=== PATIENT | female | born 1945 | race Two or more races ===

== ENCOUNTER 2024-03-24 13:54 | Inpatient (IN) | payer OTHER, MEDICAID ==
[~2024-03-24] VITALS: Ht 157.5 cm; Wt 60.0 kg
[2024-03-24 15:36] LABS: Basophils # (auto) 0 10 ^3/uL (0-0.2); Basophils % (auto) 0.2 % (0.0-2.0); Eosinophils # (auto) 0.1 10 ^3/uL (0-0.8); Eosinophils % (auto) 0.5 % (0.0-7.0); Hematocrit 30.6 % (36.0-46.0); Hemoglobin 10.1 g/dL (12.2-16.2); Lymphocytes # (auto) 1.6 10 ^3/uL (0.4-5.4); Lymphocytes % (auto) 14.3 % (10.0-50.0); Mean Corpuscular Hemoglobin 28.3 pg (28.0-32.0); Mean Corpuscular Volume 85.6 fL (80.0-100.0); Monocytes % (auto) 9.1 % (0.0-12.0); Neutrophils # (auto) 8.7 10 ^3/uL (1.6-8.6); Neutrophils % (auto) 75.9 % (37.0-80.0); Platelet Count (auto) 486 10^3/uL (140-450); Red Blood Cells 3.57 10^6/uL (4.0-5.20); Red Cell Distribution Width 14.9 % (11.8-14.3); White Blood Cell 11.4 10^3/uL (4.4-10.8)
[2024-03-24 15:51] LABS: Anion Gap 6 (5-15); Carbon Dioxide 26 mmol/L (20-31); Chloride 99 mmol/L (98-107); Potassium 4.1 mmol/L (3.5-5.1); Sodium 131 mmol/L (136-145)
[2024-03-24 15:52] LABS: Calcium 9.5 mg/dL (8.7-10.4)
[2024-03-24 15:57] LABS: BUN/Creatinine Ratio 14.7 (10.0-20.0); Blood Urea Nitrogen 16 mg/dL (9-23); Glucose 92 mg/dL (74-106)
[2024-03-24 16:05] LABS: Urine Bacteria None Seen /hpf (None Seen)
[2024-03-24 16:34] LABS: Urine Blood Negative /uL (Negative); Urine Clarity Clear (Clear); Urine Color Yellow (Yellow); Urine Protein, UAD Negative (Negative); Urine Specific Gravity 1.016 (1.001-1.035); Urine Urobilinogen 8 mg/dL (Negative); Urine WBC 1 /hpf (0 - 5); Urine pH 6.5 (5.0-9.0)
--- NOTE | 2024-03-24 16:44 | ED.PDOC ---
History of Present Illness HPI Comments 78-year-old female presents with a chief complaint of nausea and poor appetite since cholecystectomy surgery. Patient states that her gallbladder was removed from [facility] on March 11, 2024. Patient mentions that she has not been able to hold down any liquids or solids without the need to vomit them back up. Patient also mentions that she has lost a fair amount of weight because of the lack of eating. Denies any abdominal pain or active pain at this time. Chief Complaint: Nausea/Vomiting Time Seen by MD: 16:48 Reviewed Notes: Medications, Allergies Allergies: Coded Allergies: NO KNOWN ALLERGIES (Unverified , 03/24/24) Information Source: Patient Mode of Arrival: Ambulatory Severity: Moderate Timing: Days Duration: Since onset Prehospital treatment: None Past Medical History PAST MEDICAL HISTORY: Denies Surgical History: Cholecystectomy CLOTH PICKER History: Denies all CLOTH PICKER Hx Family History Family History: Reviewed,noncontributory to illness Social History Smoker: Non-Smoker Alcohol: Denies ETOH Use Drugs: Denies Drug Use Lives In: Home Constitutional: denies: chills, diaphoresis, fatigue, fever, malaise, sweats, weakness, others EENTM: denies: blurred vision, double vision, ear bleeding, ear discharge, ear drainage, ear pain, ear ringing, eye pain, eye redness, hearing loss, mouth pain, mouth swelling, nasal discharge, nose bleeding, nose congestion, nose pain, photophobia, tearing, throat pain, throat swelling, voice changes, others Respiratory: denies: cough, hemoptysis, orthopnea, SOB at rest, shortness of breath, SOB with excertion, stridor, wheezing, others Cardiovascular: denies: chest pain, dizzy spells, diaphoresis, Dyspnea on exertion, edema, irregular heart beat, left arm pain, lightheadedness, palpitations, PND, syncope, others Gastrointestinal: reports: nausea, poor appetite; denies: abdomen distended, abdominal pain, blood streaked bowels, constipated, diarrhea, dysphagia, difficulty swallowing, hematemesis, melena, poor fluid intake, rectal bleeding, rectal pain, vomiting, others Genitourinary: denies: abnormal vagina bleeding, burning, dyspareunia, dysuria, flank pain, frequency, hematuria, incontinence, pain, , vagina discharge, urgency, others Neurological: denies: dizziness, fainting, headache, left sided numbness, left sided weakness, numbness, paresthesia, pre-existing deficit, right sided numbness, right sided weakness, seizure, speech problems, tingling, tremors, weakness, others Musculoskeletal: denies: back pain, gout, joint pain, joint swelling, muscle pain, muscle stiffness, neck pain, others Integumetry: denies: bruises, change in color, change in hair/nails, dryness, laceration, lesions, lumps, rash, wounds, others Allergic/Immunocompromised: denies: Difficulty Healing, Frequent Infections, Hives, Itching, others Hematologic/Lymphatic: denies: anemia, blood clots, easy bleeding, easy bruising, swollen glands, others Endocrine: denies: excessive hunger, excessive sweating, excessive thirst, excessive urination, flushing, intolerance to cold, intolerance to heat, unexplained weight gain, unexplained weight loss, others Psychiatric: denies: anxiety, bipolar disorder, depression, hopeless, panic disorder, schizophrenia, sleepless, suicidal, others All Other Systems: Reviewed and Negative Physical Exam General Appearance: Moderate Distress, Normal HEENT: Normal ENT Inspection, Pharynx Normal, TMs Normal Neck: Full Range of Motion, Non-Tender, Normal, Normal Inspection Respiratory: Chest Non-Tender, Lungs Clear, No Accessory Muscle Use, No Respiratory Distress, Normal Breath Sounds Cardiovascular: No Edema, No JVD, No Murmur, No Gallop, Normal Peripheral Pulses, Regular Rate/Rhythm Breast Exam: Deferred Gastrointestinal: No Organomegaly, No Pulsatile Mass, Normal Bowel Sounds, Soft, Suprapubic Genitalia: Deferred Pelvic: Deferred Rectal: Deferred Extremities: No calf tenderness, Normal capillary refill, Normal inspection, Normal range of motion, Non-tender, No pedal edema Musculoskeletal : Apperance: Normal Neurologic: Alert, sap solutions architect II-XII nml as Tested, No Motor Deficits, Normal Affect, Normal Mood, No Sensory Deficits Cerebellar Function: Normal Reflexes: Normal Skin: Dry, Normal Color, Warm Peripheral Pulses: 3+ Radial (R), 3+ Radial (L) Lymphatic: No Adenopathy Was a procedure done? Was a procedure done?: No Differential Dx Considerations may include: Gastroenteritis Electrolyte imbalance X-Ray, Labs, Meds, VS Vital Signs Date Time Temp Pulse Resp B/P (MAP) Pulse Ox O2 Delivery O2 Flow Rate FiO2 03/24/24 14:20 97.2 82 16 122/50 (74) 98 Lab Test 03/24/24 16:05 03/24/24 15:10 Range/Units Urine Color Yellow Yellow Urine Clarity Clear Clear Urine pH 6.5 5.0-9.0 Urine Specific [place] 1.016 1.001-1.035 Urine Protein Negative Negative Urine Ketones 1+ H Negative Urine Blood Negative Negative /uL Urine Nitrite Negative Negative Urine Bilirubin Negative Negative Urine Urobilinogen 8 H Negative mg/dL Urine Leukocyte Esterase Negative Negative /uL Urine RBC 4 0 - 4 /hpf Urine WBC 1 0 - 5 /hpf Urine Squamous Epithelial Cells Few <5 /hpf Urine Bacteria None seen None Seen /hpf Urine Glucose Normal Normal mg/dL White Blood Count 11.4 H 4.4-10.8 10^3/uL Red Blood Count 3.57 L 4.0-5.20 10^6/uL Hemoglobin 10.1 L 12.2-16.2 g/dL Hematocrit 30.6 L 36.0-46.0 % Mean Corpuscular Volume 85.6 80.0-100.0 fL Mean Corpuscular Hemoglobin 28.3 28.0-32.0 pg Mean Corpuscular Hemoglobin Concent 33.0 32.0-36.0 g/dL Red Cell Distribution Width 14.9 H 11.8-14.3 % Platelet Count 486 H 140-450 10^3/uL Mean Platelet Volume 7.6 6.9-10.8 fL Neutrophils (%) (Auto) 75.9 37.0-80.0 % Lymphocytes (%) (Auto) 14.3 10.0-50.0 % Monocytes (%) (Auto) 9.1 0.0-12.0 % Eosinophils (%) (Auto) 0.5 0.0-7.0 % Basophils (%) (Auto) 0.2 0.0-2.0 % Neutrophils # (Auto) 8.7 H 1.6-8.6 10 ^3/uL Lymphocytes # (Auto) 1.6 0.4-5.4 10 ^3/uL Monocytes # (Auto) 1.0 0-1.3 10 ^3/uL Eosinophils # (Auto) 0.1 0-0.8 10 ^3/uL Basophils # (Auto) 0 0-0.2 10 ^3/uL Nucleated Red Blood Cells 0.0 % Sodium Level 131 L 136-145 mmol/L Potassium Level 4.1 3.5-5.1 mmol/L Chloride Level 99 98-107 mmol/L Carbon Dioxide Level 26 20-31 mmol/L Anion Gap 6 5-15 Blood Urea Nitrogen 16 9-23 mg/dL Creatinine 1.09 H 0.550-1.02 mg/dL Glomerular Filtration Rate Calc 52 >90 mL/min BUN/Creatinine Ratio 14.7 10.0-20.0 Serum Glucose 92 74-106 mg/dL Calcium Level 9.5 8.7-10.4 mg/dL Patient alert. Complaining of abdominal. Vitals stable. Answering questions. Reviewed her previous visit. Had gallbladder surgery in this hospital. WBC elevated. Establish intravenous access. Was given fluids. Was given Zosyn. Was given Flagyl. She has not been eating well ever since she started the symptoms. Explained to the patient. Continue cardiac monitoring. UA shows ketones. Time of 1ST Reevaluation: 17:18 Reevaluation 1ST: Unchanged Patient Education/Counseling: Diagnosis, Treatment, Prognosis Family Education/Counseling: Diagnosis, Treatment, Prognosis Departure 1 Departure Time of Disposition: 17:08 Impression: Primary Impression: Leukocytosis Qualified Codes: D72.829 - Elevated white blood cell count, unspecified Additional Impressions: Gastroenteritis Dehydration Disposition: ADMITTED INPATIENT Admit to: Med Surg Condition: Guarded Critical Care Note Critical Care Time?: Yes (45 min-critical care time only) Stability Stability form required: No Heart Score Heart Score: Heart Score Response (Comments) Value History N/A 0 EKG N/A 0 Age N/A 0 Risk Factors N/A 0 Troponin N/A 0 Total 0 I personally scribed for CHAD OVERTON MD ([email or web address]) on 03/24/24 at 16:44. Electronically submitted by Ramu Mcneal ([email or web address]). I personally scribed for CHAD OVERTON MD ([email or web address]) on 03/24/24 at 16:46. Electronically submitted by Ramu Mcneal ([email or web address]). I personally scribed for CHAD OVERTON MD ([email or web address]) on 03/24/24 at 16:53. Electronically submitted by Ramu Mcneal ([email or web address]). I personally scribed for CHAD OVERTON MD ([email or web address]) on 03/24/24 at 16:53. Electronically submitted by Ramu Mcneal ([email or web address]). CHAD OVERTON MD Mar 24, 2024 16:44
[2024-03-24] MEDS: ONDANSETRON HCL 4 MG/2 ML VIAL IV ONE (20:15)
[2024-03-24] MEDS: MORPHINE SULFATE 4 MG/ML SYR/VIAL IV ONE (20:21)
[2024-03-24] MEDS ORDERED: KETOROLAC TROMETH 30 MG/ML 1ML VIAL IV ONE (20:30)
[2024-03-24] MEDS ORDERED: MORPHINE SULFATE INJ 2 MG/ml SYRG IV PRN (22:15)
[2024-03-24] MEDS ORDERED: ACETAMINOPHEN 325 MG TAB PO PRN (22:15)
[2024-03-24] MEDS ORDERED: NITROGLYCERIN 0.4 MG SL TAB SL PRN (22:15)
[2024-03-25] VITALS (7 sets, daily range): BP systolic 113–119; BP diastolic 51–69; PULSE 72–85; RESP 17–19; TEMP 96.7–98.9; O2SAT 93–98
--- NOTE | 2024-03-25 00:21 | DVHHPRES ---
History of Present Illness Resident Creating Document: YANN COBOS RESIDENT History of Present Illness ROXIE SILVA is a 78 years old female with a PMH of HTN presented to the ED with the chief complaints of poor appetite, nausea and throwing for past 3 days. Patient reported, for past 3 days she is having severe nausea and vomiting, and mild abdominal pain stopped eating. Patient gallbladder was removed 03/11/2024 in this facility. On my assessment patient denies fever, chills, diarrhea, constipation, chest pain, shortness of breath, and other associated symptoms Cardiovascular: HTN Past Surgical History: Cholecystectomy, Hysterectomy Family History: None Past Social History Lives with a son. Denies smoking, alcohol and other drug abuse Review of Systems Constitutional: No: Fever, Chills, Sweats, Weakness, Malaise, Other Eyes: No: Pain, Vision change, Conjunctivae inflammation, Eyelid inflammation, Other, Redness ENT: No: Ear pain, Ear discharge, Nose pain, Nose discharge, Nose congestion, Mouth pain, Mouth swelling, Throat pain, Throat swelling, Other Respiratory: No: Cough, Dry, Shortness of breath, SOB with excertion, Wheezing, Hemoptysis, Pleuritic Pain, Sputum, Wheezing, Other Cardiovascular: No: Chest Pain, Palpitations, Orthopnea, Paroxysmal Noc. Dyspnea, Edema, Lt Headedness, Other Gastrointestinal: Nausea, Vomiting, Abdominal Pain Genitourinary: No Dysuria, No Frequency, No Incontinence, No Hematuria, No Retention, No Other Musculoskeletal: No: other, neck pain, shoulder pain, arm pain, back pain, hand pain, leg pain, foot pain Skin: No: Rash, Lesions, Jaundice, Bruising, Other Neurological: No: Weakness, Numbness, Incoordination, Change in speech, Confusion, Seizures, Other Allergies: Coded Allergies: NO KNOWN ALLERGIES (Unverified , 03/24/24) Medications Current Medications Medications Dose Ordered Sig/Corina Route Start Time Stop Time Status Last Admin Dose Admin Sodium Chloride 10 ml Q8HR IV 03/25/24 06:00 Ondansetron HCl 4 mg Q4HP PRN IV 03/24/24 22:15 Acetaminophen 650 mg Q6HP PRN PO 03/24/24 22:15 Nitroglycerin 0.4 mg Q5MINP PRN SL 03/24/24 22:15 Morphine Sulfate 2 mg Q30M PRN IV 03/24/24 22:15 Exam Vital Signs Vital Signs Date Time Temp Pulse Resp B/P (MAP) Pulse Ox O2 Delivery O2 Flow Rate FiO2 03/24/24 19:50 97.9 78 18 124/51 (75) 98 97.9 03/24/24 14:20 Room Air Exam Pt is lying on bed General Appearance: Alert, Oriented X3, Cooperative, Not in acute distress HEENT: Atraumatic, Mucous membranes moist/pink Respiratory: Clear to auscultation, Normal air movement, No added sounds Cardiovascular: Regular rate, Normal S1, Normal S2, No murmurs Abdominal: Mild abdominal tenderness. Active bowel sounds, Soft, no distention, Extremities: No edema, Normal pulses, No tenderness/swelling Skin: No Significant rash, except past surgical scars Neuro: Normal speech, sensorimotor deficits none Psych/Mental Status: Mental status NL, Mood NL Nurse was there as sharperone during examination Labs/Xrays Labs Test 03/24/24 23:57 03/24/24 16:05 03/24/24 15:10 Range/Units Urine Color Yellow Yellow Urine Clarity Clear Clear Urine pH 6.5 5.0-9.0 Urine Specific [place] 1.016 1.001-1.035 Urine Protein Negative Negative Urine Ketones 1+ H Negative Urine Blood Negative Negative /uL Urine Nitrite Negative Negative Urine Bilirubin Negative Negative Urine Urobilinogen 8 H Negative mg/dL Urine Leukocyte Esterase Negative Negative /uL Urine RBC 4 0 - 4 /hpf Urine WBC 1 0 - 5 /hpf Urine Squamous Epithelial Cells Few <5 /hpf Urine Bacteria None seen None Seen /hpf Urine Glucose Normal Normal mg/dL White Blood Count 11.4 H 4.4-10.8 10^3/uL Red Blood Count 3.57 L 4.0-5.20 10^6/uL Hemoglobin 10.1 L 12.2-16.2 g/dL Hematocrit 30.6 L 36.0-46.0 % Mean Corpuscular Volume 85.6 80.0-100.0 fL Mean Corpuscular Hemoglobin 28.3 28.0-32.0 pg Mean Corpuscular Hemoglobin Concent 33.0 32.0-36.0 g/dL Red Cell Distribution Width 14.9 H 11.8-14.3 % Platelet Count 486 H 140-450 10^3/uL Mean Platelet Volume 7.6 6.9-10.8 fL Neutrophils (%) (Auto) 75.9 37.0-80.0 % Lymphocytes (%) (Auto) 14.3 10.0-50.0 % Monocytes (%) (Auto) 9.1 0.0-12.0 % Eosinophils (%) (Auto) 0.5 0.0-7.0 % Basophils (%) (Auto) 0.2 0.0-2.0 % Neutrophils # (Auto) 8.7 H 1.6-8.6 10 ^3/uL Lymphocytes # (Auto) 1.6 0.4-5.4 10 ^3/uL Monocytes # (Auto) 1.0 0-1.3 10 ^3/uL Eosinophils # (Auto) 0.1 0-0.8 10 ^3/uL Basophils # (Auto) 0 0-0.2 10 ^3/uL Nucleated Red Blood Cells 0.0 % Assessment/Plan Assessment/Plan # leukocytosis # rule out sepsis # Unspecified abdomonal pain ? abscess - CT abdomin or pelvis showed mixed soft tissue density and gas in the gallbladder fossa for which a fluid collection or abscess is not excluded. -consider CT abdomen with contrast if needed -pain management as needed -given Zofran -clear liquid diet for now # Hyponatremia -monitor lab for now # Javier likely VMN -monitor lab for now -encourage oral fluids # Sigmoid diverticulosis without acute diverticulitis -evident on CT abdominal pelvis -advised dietary modifications No VTE PPX since patient is ambulatory Protonix Clear liquid diet Reconciled home meds Goals of care discussed with the patient and more than 27 minutes: Full code Case management discussed with Dr. Jurado, patient and nurse Plan discussed with: Patient My Orders Orders - YANN COBOS RESIDENT Procedure Category Date Status Time Admit ADMIT 03/24/24 Transmitted 22:07 Allergies VIOLETA 03/24/24 In Process 22:07 Code Status CODE 03/24/24 Transmitted 22:07 Sodium Chloride Lock PHA 03/25/24 In Process (Saline Lock Ns) 06:00 Ondansetron Hcl PHA 03/24/24 In Process (Zofran) 22:15 Complete Blood Count LAB 03/25/24 Logged 04:00 Comprehensive LAB 03/25/24 Logged Metabolic Panel 04:00 Acetaminophen Tablet PHA 03/24/24 In Process (Tylenol Tablet) 22:15 Nitroglycerin PHA 03/24/24 In Process Sublingual (Ntrostat 22:15 Morphine Sulfate PHA 03/24/24 In Process Injection 22:15 Oxygen By Nasal RT 03/24/24 Transmitted Cannula 22:07 Stat Ekg For Chest VIOLETA 03/24/24 In Process Pain 22:07 Notify Of Changes VIOLETA 03/24/24 In Process From Base 22:07 Brake Liner For VIOLETA 03/24/24 In Process 24 Hours 22:07 Emergency Dysrhythmia VIOLETA 03/24/24 In Process Protocol 22:07 Rhythm Strips Once VIOLETA 03/24/24 In Process Every Shift 22:07 Comprehensive LAB 03/24/24 In Process Metabolic Panel 23:33 Drug Screen LAB 03/24/24 Logged 23:33 Hemoglobin A1c LAB 03/24/24 In Process 23:33 PTPTT LAB 03/25/24 Logged 04:00 Vitamin D, 25-Hydroxy LAB 03/24/24 In Process 23:33 Vitamin B12 LAB 03/24/24 In Process 23:33 Thyroid Stimulating LAB 03/24/24 In Process Hormone 23:33 Stool Occult Blood LAB 03/25/24 Logged 04:00 Ct Ab Pel Wo Con-No CT 03/24/24 Taken Oral Or Iv 23:36 Complete Blood Count LAB 03/25/24 Transmitted 00:16 YANN COBOS RESIDENT Mar 25, 2024 00:21
[2024-03-25 00:25] LABS: Basophils # (auto) 0.1 10 ^3/uL (0-0.2); Basophils % (auto) 0.7 % (0.0-2.0); Eosinophils # (auto) 0.1 10 ^3/uL (0-0.8); Eosinophils % (auto) 1.1 % (0.0-7.0); Hematocrit 31.2 % (36.0-46.0); Hemoglobin 10.4 g/dL (12.2-16.2); Lymphocytes # (auto) 1.7 10 ^3/uL (0.4-5.4); Lymphocytes % (auto) 22.6 % (10.0-50.0); Mean Corpuscular Hemoglobin 28.7 pg (28.0-32.0); Mean Corpuscular Hgb Conc. 33.5 g/dL (32.0-36.0); Mean Corpuscular Volume 85.6 fL (80.0-100.0); Monocytes # (auto) 0.9 10 ^3/uL (0-1.3); Monocytes % (auto) 12.2 % (0.0-12.0); Neutrophils # (auto) 4.7 10 ^3/uL (1.6-8.6); Neutrophils % (auto) 63.4 % (37.0-80.0); Nucleated Red Blood Cells % 0.1 %; Platelet Count (auto) 495 10^3/uL (140-450); Red Blood Cells 3.65 10^6/uL (4.0-5.20); Red Cell Distribution Width 14.8 % (11.8-14.3); White Blood Cell 7.4 10^3/uL (4.4-10.8)
[2024-03-25 00:27] LABS: Alanine Aminotransferase 10 U/L (7-40); Alkaline Phosphatase 124 U/L (46-116); Anion Gap 7 (5-15); Aspartate Aminotransferase 15 U/L (13-40); Blood Urea Nitrogen 15 mg/dL (9-23); Calcium 9.5 mg/dL (8.7-10.4); Carbon Dioxide 24 mmol/L (20-31); Chloride 100 mmol/L (98-107); Glucose 82 mg/dL (74-106); Potassium 4.3 mmol/L (3.5-5.1); Sodium 131 mmol/L (136-145)
[2024-03-25 00:28] LABS: Albumin 3.9 g/dL (3.2-4.8); Bilirubin, Total 0.8 mg/dL (0.2-1.0); Total Protein 6.7 g/dL (5.7-8.2)
[2024-03-25] MEDS ORDERED: MORPHINE SULFATE INJ 2 MG/ml SYRG IV PRN (01:45)
[2024-03-25] MEDS ORDERED: ACET1CAP14 PO (01:57)
[2024-03-25] MEDS ORDERED: LOVA10TA2 PO (01:57)
[2024-03-25] MEDS ORDERED: ZOFR4T PO (01:57)
[2024-03-25] MEDS ORDERED: LOSA-534 PO (01:57)
[2024-03-25] MEDS ORDERED: BACDST PO (01:57)
[2024-03-25] MEDS ORDERED: OMEP-434 PO (01:57)
[2024-03-25] MEDS: PANTOPRAZOLE 40 MG/10 ML VIAL INJ IV ONE (02:09)
--- NOTE | 2024-03-25 04:09 | DVH ---
Exam: CT CT AB PEL WO CON-NO ORAL OR IV History: abd pain Comparison Study: None available at time of dictation. TECHNIQUE: Multidetector CT of the abdomen and pelvis was performed from lung bases to ischial tubero sities. Imaging was performed without IV contrast using axial images. Coronal and sagittal reformats were obtained from the axial data set by the technologist. Radiation Dose Information: CT Dose: CTDI volume is 8.4 mGy. Dose-length product is 410.99 mGy*cm FINDINGS: Evaluation of solid organs is limited due to lack of intravenous contrast use. Findings: Lung Bases: No acute or significant lung base finding. Normal heart size. No pleural or pericardial effusion. Liver: The liver is normal in size. No focal lesions. Gallbladder and Biliary Tree: There surgical clips in the gallbladder fossa. There is soft tissue den sity and gas in the gallbladder fossa. This measures approximately 3.7 cm. There is mild fat strandin g adjacent to the gallbladder fossa. Spleen: Unremarkable Pancreas: The pancreas is grossly normal in appearance. Adrenal Glands: Unremarkable Kidneys: Kidneys are grossly normal without calculi or hydronephrosis. GI Tract: The stomach is grossly normal in appearance. Small bowel is normal in caliber. There is si gmoid diverticulosis without acute diverticulitis. Appendix not visualized, however no acute inflamma tory changes in the right lower quadrant. Peritoneal cavity: No pneumoperitoneum. No ascites. Lymphadenopathy: No mesenteric, retroperitoneal or periportal lymphadenopathy. Abdominal Wall and Mesentery: Unremarkable. Vasculature: The visualized abdominal aorta is normal in size and caliber. Evaluation of abdominal a nd pelvic vessels is limited due to lack of intravenous contrast. There are atherosclerotic calcific ations in the aorta. Pelvic Organs: Unremarkable Urinary Bladder: Grossly unremarkable for degree of distention. Musculoskeletal: No aggressive focal bony lesions, acute fractures or dislocation. Soft tissues: Skin deepthi project over the subcutaneous abdominal wall. IMPRESSION: 1. Status post cholecystectomy. Mixed soft tissue density and gas in the gallbladder fossa for which a fluid collection or abscess is not excluded. Evaluation is limited without intravenous contrast. CT of the abdomen pelvis with intravenous contrast is recommended for further evaluation. 2. Sigmoid diverticulosis without acute diverticulitis. Radiation optimization: All CT scans at this facility use at least one of these dose optimization chapito hniques: automated exposure control mA and/or kV adjustment per patient size (includes targeted exam s where dose is matched to clinical indication) or iterative reconstruction.
[2024-03-25] MEDS: SODIUM CHLOR 0.9% PF (SALINE LOCK) 10ML VIAL/SYR IV SCH (06:14)
[2024-03-25 06:25] LABS: Basophils # (auto) 0.1 10 ^3/uL (0-0.2); Eosinophils # (auto) 0.1 10 ^3/uL (0-0.8); Eosinophils % (auto) 1.1 % (0.0-7.0); Hemoglobin 10.3 g/dL (12.2-16.2); Lymphocytes # (auto) 1.5 10 ^3/uL (0.4-5.4); Monocytes # (auto) 0.7 10 ^3/uL (0-1.3)
[2024-03-25 06:27] LABS: Basophils % (auto) 1.3 % (0.0-2.0); Hematocrit 30.5 % (36.0-46.0); Lymphocytes % (auto) 27.1 % (10.0-50.0); Mean Corpuscular Hemoglobin 28.7 pg (28.0-32.0); Mean Corpuscular Hgb Conc. 33.7 g/dL (32.0-36.0); Mean Corpuscular Volume 85.1 fL (80.0-100.0); Monocytes % (auto) 12.6 % (0.0-12.0); Neutrophils # (auto) 3.3 10 ^3/uL (1.6-8.6); Neutrophils % (auto) 57.9 % (37.0-80.0); Platelet Count (auto) 528 10^3/uL (140-450); Red Blood Cells 3.58 10^6/uL (4.0-5.20); Red Cell Distribution Width 14.6 % (11.8-14.3); White Blood Cell 5.6 10^3/uL (4.4-10.8)
[2024-03-25 06:33] LABS: Alanine Aminotransferase 10 U/L (7-40); Albumin 3.7 g/dL (3.2-4.8); Alkaline Phosphatase 114 U/L (46-116); Anion Gap 6 (5-15); Aspartate Aminotransferase 15 U/L (13-40); BUN/Creatinine Ratio 13.7 (10.0-20.0); Bilirubin, Total 0.7 mg/dL (0.2-1.0); Blood Urea Nitrogen 14 mg/dL (9-23); Calcium 9.2 mg/dL (8.7-10.4); Carbon Dioxide 25 mmol/L (20-31); Chloride 102 mmol/L (98-107); Glucose 79 mg/dL (74-106); Potassium 4.4 mmol/L (3.5-5.1); Sodium 133 mmol/L (136-145); Total Protein 6.3 g/dL (5.7-8.2)
[2024-03-25 06:46] LABS: INR 1.08 (0.9-1.15); Partial Thromboplastin Time 31.7 SEC (24.5-34.5); Prothrombin Time 11.4 sec (9.3-11.8)
--- NOTE | 2024-03-25 09:01 | DVH ---
CHEST RADIOGRAPH Indication:evaluate lung parenchyma Technique: Single frontal view of the chest was obtained COMPARISON: None FINDINGS: Lines and Tubes: None Lungs: Clear Pleura: No effusion. No pneumothorax. Cardiomediastinal contours: Unremarkable Bones: Unremarkable IMPRESSION: No acute disease.
[2024-03-25 09:20] LABS: Amphetamine Screen, Urine Neg (NEGATIVE); Barbiturate Scree,Urine Neg (NEGATIVE); Benzodiazephine Screen, Urine Neg (NEGATIVE); Cannabinoid Screen, Urine Neg (NEGATIVE); Cocaine Screen, Urine Neg (NEGATIVE); Opiate Scree,Urine Neg (NEGATIVE); Phencyclidine Screen, Urine Neg (NEGATIVE)
[2024-03-25] MEDS: LOSARTAN POTASSIUM 50 MG TAB PO SCH (10:00)
[2024-03-25] MEDS: PANTOPRAZOLE 40 MG/10 ML VIAL INJ IV SCH (10:06)
--- NOTE | 2024-03-25 11:14 | DVH ---
Exam: CT CT AB PEL WITH IV CON ONLY History: abd pain Comparison Study: TECHNIQUE: A digital candy cutter machine image was obtained. During the uneventful, intravenous administration of c ontrast material, multislice data acquisition was obtained through the abdomen and pelvis. The data s et was subsequently reconstructed into axial images. Images were reviewed on a work station using a c ombination of axial and multiplanar using a variety of window levels and settings. 100 cc of Omnipaqu e 300 contrast was injected intravenously. All CT scans at this medical facility are performed using dose modulation techniques as appropriate t o a performed exam including the following:Automated exposure control was utilized; adjustment of the MA and/or KV according to patient size; and use of iterative reconstruction technique. Radiation Dose Information: CT Dose: CTDI volume is 5.38 mGy. Dose-length product is 304.94 mGy*cm Comparison: CT CT AB PEL WO CON-NO ORAL OR IV on DOS: 03/24/24 FINDINGS: There are postsurgical changes related to cholecystectomy. There is an approximately 5.1 cm fluid col lection with pockets of air and thickened enhancing brooks in the gallbladder fossa compatible with an abscess. There are mild hypoenhancing changes in the adjacent hepatic parenchyma which May relate to edematous changes. The liver parenchyma otherwise appears within normal limits. There is central int rahepatic biliary ductal dilatation. The pancreas, kidneys, adrenal glands, and spleen appear within normal limits. There is no evidence of abdominal lymphadenopathy. There is no free fluid or free air. The stomach grossly appears unremarkable. The small and large bowel loops demonstrate normal caliber. There are multiple diverticula in the sigmoid colon without evidence of acute diverticulitis. The abdominal aorta and IVC appear within normal limits. The bladder appears within normal limits the degree of distention. Uterus is surgically absent. There is no evidence of a pelvic mass or lymphadenopathy. There is no free fluid collection. There is a f at containing right inguinal hernia. Lung bases are clear. There is no acute osseous abnormality. IMPRESSION: 1. Status post cholecystectomy. There is a 5.1 cm abscess in the right gallbladder fossa. There is ce ntral intrahepatic biliary ductal dilatation. 2. Sigmoid diverticulosis. HS:Y
[2024-03-25] MEDS ORDERED: IOHEXOL 350 MG/ML 100ML IJ ONE (11:57)
[2024-03-25] MEDS ORDERED: metroNIDAZOLE 500MG/100ML 100 ML IV SCH ×2 (14:00)
--- NOTE | 2024-03-25 14:25 | DVHPN2 ---
Progress Note Date Seen: Mar 25, 2024 Medical Necessity Reason Pt with a Central, PICC or Fol: No Objective vital signs Vital Sign Date Time Temp Pulse Resp B/P (MAP) Pulse Ox O2 Delivery O2 Flow Rate FiO2 03/25/24 13:00 98.3 76 17 116/51 (72) 93 98.3 03/25/24 00:55 Room Air* 0 21 Total Intake and Output 03/24/24 03/24/24 03/25/24 15:00 23:00 07:00 Intake Total 100 ml Balance 100 ml medications Current Medications Medications Dose Ordered Sig/Corina Route Start Time Stop Time Status Last Admin Dose Admin Sodium Chloride 10 ml Q8HR IV 03/25/24 06:00 03/25/24 06:14 10 ML Ondansetron HCl 4 mg Q4HP PRN IV 03/24/24 22:15 Acetaminophen 650 mg Q6HP PRN PO 03/24/24 22:15 Nitroglycerin 0.4 mg Q5MINP PRN SL 03/24/24 22:15 Morphine Sulfate 2 mg Q30M PRN IV 03/24/24 22:15 Morphine Sulfate 2 mg Q6HPRN PRN IV 03/25/24 01:45 Pantoprazole Sodium 40 mg DAILY IV 03/25/24 10:00 03/25/24 10:06 40 MG Losartan Potassium 50 mg DAILY PO 03/25/24 10:00 Sodium Chloride 1,000 ml @ 100 mls/hr Q10H IV 03/25/24 10:30 Cefepime HCl 50 ml @ 12.5 mls/hr Q12HR IV 03/25/24 22:00 Metronidazole 100 ml @ 100 mls/hr Q8HR IV 03/25/24 22:00 laboratory and microbiology Laboratory Tests 03/25/24 05:30 Test 03/25/24 05:30 Range/Units Serum Glucose 79 74-106 mg/dL Problem List/Assessment/Plan Problem List/Assessment/Plan 03/25/24 patient had laparoscopic cholecystectomy done about two weeks ago by me, she came in yesterday due to sudden onset of epigastric pain and loss of appetite, now improved, the findings on CT scan are most likely due to hemostatic SNOW which was used in the Gallbladder fossa to assist with hemostasis during her operation, not an abscess, her WBC is normal and the deferential count is also normal.she is afebrile, wounds are clean and well approximated, there is no RUQ tenderness her LFT's are normal. Will order an MRCP due to intrahepatic bile duct dilatation, she can resume po intake and ambulation. Explained to patient and her son at bedside Plan discussed with: Patient, Son JUDITH MACIAS MD Mar 25, 2024 14:25
[2024-03-25] MEDS: metroNIDAZOLE 500MG/100ML 100 ML IV ONE (16:19)
[2024-03-25] MEDS: SODIUM CHLORIDE 0.9% 1,000 ML IV SCH (16:19)
--- NOTE | 2024-03-25 16:30 | DVH ---
MRI Abdomen, without IV Contrast Exam Date: 03/25/2024 02:43 PM Comparison: None History: r/o choledocholithiasis Technique: Multisequence multiplanar MRI images were obtained of the abomen. MRCP including 3D SPACE, Radial 3D slabs and SPACE 3D MIP images Findings: Liver: The liver is normal in size without focal lesions. Normal liver contour. Spleen: Unremarkable. Pancreas: The pancreas is normal in appearance without focal lesions. Gallbladder and ducts: Gallbladder is surgically absent. There is a fluid and air collection in the g allbladder fossa measuring up to 50mm. The cystic duct, right and left hepatic ducts, common hepatic duct, and common bile ducts are unremarkable. The pancreatic duct is within normal limits. Adrenal glands: Unremarkable. Kidneys: Normal enhancement without suspicious lesions or hydronephrosis. Visualized bowel: Grossly unremarkable. Vasculature: Unremarkable. Lymphadenopathy: No evidence for lymphadenopathy. Ascites: Absent. Musculoskeletal: Bone marrow signal is normal. IMPRESSION: 1. Status post cholecystectomy. Fluid and air collection in the gallbladder fossa could represent an abscess or biloma. No intrahepatic or extrahepatic biliary dilation. No choledocholithiasis. HS:Y.
--- NOTE | 2024-03-25 16:51 | DVHPNRES ---
Progress Note Date Seen: Mar 25, 2024 Resident Creating Document: SHANELL GARZA RESIDENT Medical Necessity Reason Pt with a Central, PICC or Fol: No Subjective Review of Systems Patient is 72 years old female with past medical history of hypertension, hyperlipidemia, GERD, recent history of cholecystectomy on 03/11/24 at [facility] came with a complaint of poor appetite and nausea and vomiting for last 2-3 days. As per patient patient has been having poor appetite, nausea, vomiting 2 times, greenish, no blood for last 2-3 days. Patient also endorsed abdominal pain, intermittent, crampy, 10, no radiation. Because of the pain and nausea and vomiting patient was not eating or drinking well for last couple of days. Patient denied any fever, chest pain, shortness of breath, acute joint pain or swelling, dizziness or dysarthria. Reviewed leukocytosis WBC 11.4, mild anemia hemoglobin 10.1, mild hyponatremia sodium 131, TYREL on CKD, serum creatinine 1.09, GFR 52, TSH 1.35, alkaline phosphatase/AST/ALT/bilirubin with a normal limit, urinalysis negative for UTI. UDS negative. Stool FOBT negative, CT abdomen revealed-Status post cholecystectomy. Mixed soft tissue density and gas in the gallbladder fossa for which a fluid collection or abscess is not excluded. Evaluation is limited without intravenous contrast. Sigmoid diverticulosis without acute diverticulitis. CXR no acute cardiopulmonary disease. CT abdomen and pelvis with contrast revealed- Status post cholecystectomy. There is a 5.1 cm abscess in the right gallbladder fossa. There is central intrahepatic biliary ductal dilatation. Sigmoid diverticulosis. PMH-hypertension, hyperlipidemia, GERD, PSH- cholecystectomy on 03/11/2024., hysterectomy Allergy- NKDA Personal History/ Social History- lives with son, nonsmoker, nonalcoholic, no drug abuser Patient was seen today at the bedside. Patient reported poor appetite, Cardiovascular- deny acute chest pain or shortness of breath or cough or palpitation Respiratory- denies cough or short of breath or wheezing Gastrointestinal- denies any rectal bleeding, nausea or vomiting Musculoskeletal-denies acute joint swelling or tenderness or redness Neurological- denies acute dysarthria, dysphagia, change in vision Psychiatry- denies depression or SI or HI Skin- denies acute rash or purpura Was seen today for clinical evaluation. Labs and chart reviewed. Patient reported poor appetite with occasional nausea. Patient's upper abdomen is mildly tender on palpation. Patient was seen by surgeon Dr. Mallory, MRCP due to intrahepatic bile duct dilatation, . Recommended to resume p.o. intake and ambulation. Started on cefepime 1 g IV b.i.d. and metronidazole 500 mg IV q.8h due to suspected sepsis.CT abdomen revealed-Status post cholecystectomy. Mixed soft tissue density and gas in the gallbladder fossa for which a fluid collection or abscess is not excluded. Evaluation is limited without intravenous contrast. Sigmoid diverticulosis without acute diverticulitis. CXR no acute cardiopulmonary disease. CT abdomen and pelvis with contrast revealed- Status post cholecystectomy. There is a 5.1 cm abscess in the right gallbladder fossa. There is central intrahepatic biliary ductal dilatation. Sigmoid diverticulosis. Objective vital signs Vital Sign Date Time Temp Pulse Resp B/P (MAP) Pulse Ox O2 Delivery O2 Flow Rate FiO2 03/25/24 13:00 98.3 76 17 116/51 (72) 93 98.3 03/25/24 00:55 Room Air* 0 21 Total Intake and Output 03/24/24 03/24/24 03/25/24 15:00 23:00 07:00 Intake Total 100 ml Balance 100 ml medications Current Medications Medications Dose Ordered Sig/Corina Route Start Time Stop Time Status Last Admin Dose Admin Sodium Chloride 10 ml Q8HR IV 03/25/24 06:00 03/25/24 14:00 10 ML Ondansetron HCl 4 mg Q4HP PRN IV 03/24/24 22:15 Acetaminophen 650 mg Q6HP PRN PO 03/24/24 22:15 Nitroglycerin 0.4 mg Q5MINP PRN SL 03/24/24 22:15 Morphine Sulfate 2 mg Q30M PRN IV 03/24/24 22:15 Morphine Sulfate 2 mg Q6HPRN PRN IV 03/25/24 01:45 Pantoprazole Sodium 40 mg DAILY IV 03/25/24 10:00 03/25/24 10:06 40 MG Losartan Potassium 50 mg DAILY PO 03/25/24 10:00 Sodium Chloride 1,000 ml @ 100 mls/hr Q10H IV 03/25/24 10:30 Cefepime HCl 50 ml @ 12.5 mls/hr Q12HR IV 03/25/24 22:00 Metronidazole 100 ml @ 100 mls/hr Q8HR IV 03/25/24 22:00 Examination General examination- HEENT- PEERLA, no acute nasal discharge Cardiovascular- S1-S2 audible, rate and rhythm regular, no murmur Respiratory- CTAB, no wheeze or rhonchi Gastrointestinal-nontender, bowel sound+. Nondistended Musculoskeletal-no acute joint swelling or tenderness or redness# Lower extremity- Neurological- cranial nerves intact, no acute dysarthria or dysphagia Psychiatry- denies depression or SI or HI Skin- no acute rash or purpura laboratory and microbiology Laboratory Tests 03/25/24 05:30 Test 03/25/24 05:30 Range/Units Serum Glucose 79 74-106 mg/dL Problem List/Assessment/Plan Problem List/Assessment/Plan #Upper abdominal pain with poor appetite and nausea and vomiting likely due to suspected abscess in the gallbladder fossa, status post cholecystectomy on 03/11/2024 -CT abdomen revealed-Status post cholecystectomy. Mixed soft tissue density and gas in the gallbladder fossa for which a fluid collection or abscess is not excluded. Evaluation is limited without intravenous contrast. Sigmoid diverticulosis without acute diverticulitis. - CT abdomen and pelvis with contrast revealed- Status post cholecystectomy. There is a 5.1 cm abscess in the right gallbladder fossa. There is central intrahepatic biliary ductal dilatation. Sigmoid diverticulosis. -patient was seen by surgery, recommended MRCP for further evaluation and care -continue IV normal saline 100 mL/hour -continue cefepime 1 g IV q.12 hours -continue metronidazole 500 mg q.8h -continue pantoprazole 40 mg IV daily -continue cardiac diet -continue with pain medication as recommended #Suspected abscess in the gallbladder fossa, status post cholecystectomy on 03/11/2024 -CT abdomen revealed-Status post cholecystectomy. Mixed soft tissue density and gas in the gallbladder fossa for which a fluid collection or abscess is not excluded. Evaluation is limited without intravenous contrast. Sigmoid diverticulosis without acute diverticulitis. - CT abdomen and pelvis with contrast revealed- Status post cholecystectomy. There is a 5.1 cm abscess in the right gallbladder fossa. There is central intrahepatic biliary ductal dilatation. Sigmoid diverticulosis. -continue IV normal saline 100 mL/hour -continue cefepime 1 g IV q.12 hours -continue metronidazole 500 mg q.8h -continue pantoprazole 40 mg IV daily -continue cardiac diet -continue with pain medication as recommended #central intrahepatic biliary ductal dilatation --patient was seen by surgery, recommended MRCP for further evaluation and care # mild hyponatremia, asymptomatic -sodium 131> 133 -monitor BMP # suspected TYREL on CKD stage 3 likely due to VMN -continue IV normal saline 100 mL/hour -monitor BMP # normocytic normochromic anemia likely due to CKD -monitor CBC # hypertension -continue losartan 50 mg p.o. daily # GERD -continue pantoprazole 40 mg IV daily # Sigmoid diverticulosis without acute diverticulitis -we will continue conservative management # hyperlipidemia -continue atorvastatin 20 mg q.h.s. Goals of care/advance care planning; FULL CODE; discussed with the patient PUD prophylaxis: Pantoprazole DVT prophylaxis: Lovenox Plan discussed with Dr. Champion,,, nursing staff, patient Total time spent on patient evaluation, chart review, assessment and plan, discussion discussion >20 minutes Plan discussed with: Patient Plan discussed with: Patient, Son, Other (RN) My Orders My Orders Orders - SHANELL GARZA Procedure Category Date Status Time Metronidazole PHA 03/25/24 In Process 500mg/100ml (Flagyl 22:00 Date of Service: Mar 25, 2024 Billing Provider: MARILYN CHAMPION MD Common Visit Codes: [id number] INP/OBS CARE(HIGH) Secondary Visit Codes: [id number] CARE PLAN 30 MINUTES SHANELL GARZA Mar 25, 2024 16:50 MARILYN CHAMPION MD Mar 25, 2024 22:12
[2024-03-25] MEDS: metroNIDAZOLE 500MG/100ML 100 ML IV SCH (20:59)
[2024-03-25] MEDS: ATORVASTATIN 20 MG TAB PO SCH (21:00)
[2024-03-25] MEDS: CEFEPIME 1GM/ 50ML 50 ML IV SCH (22:28)
[2024-03-26] VITALS (7 sets, daily range): BP systolic 106–119; BP diastolic 44–63; PULSE 74–107; RESP 16–20; TEMP 98.1–98.5; O2SAT 93–98
[2024-03-26] MEDS: ONDANSETRON HCL 4 MG/2 ML VIAL IV PRN (03:46)
[2024-03-26 06:09] LABS: Eosinophils # (auto) 0.1 10 ^3/uL (0-0.8); Hemoglobin 11.7 g/dL (12.2-16.2); Lymphocytes # (auto) 1.8 10 ^3/uL (0.4-5.4); Mean Corpuscular Hemoglobin 28.7 pg (28.0-32.0); Mean Corpuscular Hgb Conc. 32.7 g/dL (32.0-36.0); Monocytes # (auto) 0.7 10 ^3/uL (0-1.3)
[2024-03-26 06:13] LABS: Basophils # (auto) 0.1 10 ^3/uL (0-0.2); Basophils % (auto) 1.2 % (0.0-2.0); Eosinophils % (auto) 1.5 % (0.0-7.0); Hematocrit 35.8 % (36.0-46.0); Lymphocytes % (auto) 29.8 % (10.0-50.0); Mean Corpuscular Volume 87.5 fL (80.0-100.0); Monocytes % (auto) 12.3 % (0.0-12.0); Neutrophils # (auto) 3.3 10 ^3/uL (1.6-8.6); Neutrophils % (auto) 55.2 % (37.0-80.0); Nucleated Red Blood Cells % 0.1 %; Platelet Count (auto) 622 10^3/uL (140-450); Red Blood Cells 4.09 10^6/uL (4.0-5.20); Red Cell Distribution Width 14.9 % (11.8-14.3)
[2024-03-26 06:17] LABS: Chloride 106 mmol/L (98-107); Potassium 4.6 mmol/L (3.5-5.1); Sodium 136 mmol/L (136-145)
[2024-03-26 06:18] LABS: Anion Gap 7 (5-15); Calcium 9.5 mg/dL (8.7-10.4); Carbon Dioxide 23 mmol/L (20-31)
[2024-03-26 06:23] LABS: BUN/Creatinine Ratio 10.1 (10.0-20.0); Blood Urea Nitrogen 10 mg/dL (9-23); Glucose 91 mg/dL (74-106)
--- NOTE | 2024-03-26 11:14 | DVHPNRES ---
Progress Note Date Seen: Mar 26, 2024 Resident Creating Document: SHANELL GARZA RESIDENT Medical Necessity Reason Pt with a Central, PICC or Fol: No Subjective Review of Systems Patient is 72 years old female with past medical history of hypertension, hyperlipidemia, GERD, recent history of cholecystectomy on 03/11/24 at [facility] came with a complaint of poor appetite and nausea and vomiting for last 2-3 days. As per patient patient has been having poor appetite, nausea, vomiting 2 times, greenish, no blood for last 2-3 days. Patient also endorsed abdominal pain, intermittent, crampy, 10, no radiation. Because of the pain and nausea and vomiting patient was not eating or drinking well for last couple of days. Patient denied any fever, chest pain, shortness of breath, acute joint pain or swelling, dizziness or dysarthria. Reviewed leukocytosis WBC 11.4, mild anemia hemoglobin 10.1, mild hyponatremia sodium 131, TYREL on CKD, serum creatinine 1.09, GFR 52, TSH 1.35, alkaline phosphatase/AST/ALT/bilirubin with a normal limit, urinalysis negative for UTI. UDS negative. Stool FOBT negative, CT abdomen revealed-Status post cholecystectomy. Mixed soft tissue density and gas in the gallbladder fossa for which a fluid collection or abscess is not excluded. Evaluation is limited without intravenous contrast. Sigmoid diverticulosis without acute diverticulitis. CXR no acute cardiopulmonary disease. CT abdomen and pelvis with contrast revealed- Status post cholecystectomy. There is a 5.1 cm abscess in the right gallbladder fossa. There is central intrahepatic biliary ductal dilatation. Sigmoid diverticulosis. On 03/25/24 MRCP revealed-Status post cholecystectomy. Fluid and air collection in the gallbladder fossa could represent an abscess or biloma. No intrahepatic or extrahepatic biliary dilation. No choledocholithiasis.FOBT negative. PMH-hypertension, hyperlipidemia, GERD, PSH- cholecystectomy on 03/11/2024., hysterectomy Allergy- NKDA Personal History/ Social History- lives with son, nonsmoker, nonalcoholic, no drug abuser Patient was seen today at the bedside. Patient reported poor appetite, Cardiovascular- deny acute chest pain or shortness of breath or cough or palpitation Respiratory- denies cough or short of breath or wheezing Gastrointestinal- denies any rectal bleeding, nausea or vomiting Musculoskeletal-denies acute joint swelling or tenderness or redness Neurological- denies acute dysarthria, dysphagia, change in vision Psychiatry- denies depression or SI or HI Skin- denies acute rash or purpura Was seen today for clinical evaluation. Labs and chart reviewed. Patient reports some nausea which improved after antibiotic emetic medication early in the morning. Patient still reports of poor appetite. On physical exam mild tenderness in the epigastric region. Leukocytosis resolved WBC 11.4> 6.0, sodium 133> 136. On 03/25/24 MRCP revealed-Status post cholecystectomy. Fluid and air collection in the gallbladder fossa could represent an abscess or biloma. No intrahepatic or extrahepatic biliary dilation. No choledocholithiasis. Patient is on IV Cefepime and metronidazole. Tolerating well, no side effect noted. Were removed-(4 deepthi medial upper abdomen, 2 deepthi medial lower, and 2 deepthi lower right abdomen). Patient on full Cardiac diet. Objective vital signs Vital Sign Date Time Temp Pulse Resp B/P (MAP) Pulse Ox O2 Delivery O2 Flow Rate FiO2 03/26/24 09:24 117/58 03/26/24 08:32 98.1 74 20 97 98.1 03/25/24 20:00 Room Air* 0 21 Total Intake and Output 03/25/24 03/25/24 03/26/24 15:00 23:00 07:00 Intake Total 275 ml 1384 ml Balance 275 ml 1384 ml medications Current Medications Medications Dose Ordered Sig/Corina Route Start Time Stop Time Status Last Admin Dose Admin Sodium Chloride 10 ml Q8HR IV 03/25/24 06:00 03/26/24 05:32 10 ML Ondansetron HCl 4 mg Q4HP PRN IV 03/24/24 22:15 03/26/24 03:46 4 MG Acetaminophen 650 mg Q6HP PRN PO 03/24/24 22:15 Nitroglycerin 0.4 mg Q5MINP PRN SL 03/24/24 22:15 Morphine Sulfate 2 mg Q30M PRN IV 03/24/24 22:15 Morphine Sulfate 2 mg Q6HPRN PRN IV 03/25/24 01:45 Pantoprazole Sodium 40 mg DAILY IV 03/25/24 10:00 03/26/24 09:23 40 MG Losartan Potassium 50 mg DAILY PO 03/25/24 10:00 03/26/24 09:24 50 MG Sodium Chloride 1,000 ml @ 100 mls/hr Q10H IV 03/25/24 10:30 03/26/24 06:42 100 MLS/HR Cefepime HCl 50 ml @ 12.5 mls/hr Q12HR IV 03/25/24 22:00 03/26/24 09:21 12.5 MLS/HR Metronidazole 100 ml @ 100 mls/hr Q8HR IV 03/25/24 22:00 03/26/24 05:31 100 MLS/HR Atorvastatin Calcium 20 mg HS PO 03/25/24 22:00 03/25/24 21:00 20 MG Examination HEENT- PEERLA, no acute nasal discharge Cardiovascular- S1-S2 audible, rate and rhythm regular, no murmur Respiratory- CTAB, no wheeze or rhonchi Gastrointestinal-nontender, bowel sound+. Nondistended Musculoskeletal-no acute joint swelling or tenderness or redness# Lower extremity- Neurological- cranial nerves intact, no acute dysarthria or dysphagia Psychiatry- denies depression or SI or HI Skin- no acute rash or purpura laboratory and microbiology Laboratory Tests 03/26/24 05:37 Test 03/26/24 05:37 Range/Units Serum Glucose 91 74-106 mg/dL Problem List/Assessment/Plan Problem List/Assessment/Plan #Upper abdominal pain with poor appetite and nausea and vomiting likely due to suspected abscess in the gallbladder fossa, status post cholecystectomy on 03/11/2024 -CT abdomen revealed-Status post cholecystectomy. Mixed soft tissue density and gas in the gallbladder fossa for which a fluid collection or abscess is not excluded. Evaluation is limited without intravenous contrast. Sigmoid diverticulosis without acute diverticulitis. - CT abdomen and pelvis with contrast revealed- Status post cholecystectomy. There is a 5.1 cm abscess in the right gallbladder fossa. There is central intrahepatic biliary ductal dilatation. Sigmoid diverticulosis. -patient was seen by surgery, recommended MRCP for further evaluation and care -continue IV normal saline 100 mL/hour -continue cefepime 1 g IV q.12 hours -continue metronidazole 500 mg q.8h -continue pantoprazole 40 mg IV daily -continue cardiac diet -continue with pain medication as recommended #Suspected abscess in the gallbladder fossa, status post cholecystectomy on 03/11/2024 -CT abdomen revealed-Status post cholecystectomy. Mixed soft tissue density and gas in the gallbladder fossa for which a fluid collection or abscess is not excluded. Evaluation is limited without intravenous contrast. Sigmoid diverticulosis without acute diverticulitis. - CT abdomen and pelvis with contrast revealed- Status post cholecystectomy. There is a 5.1 cm abscess in the right gallbladder fossa. There is central intrahepatic biliary ductal dilatation. Sigmoid diverticulosis. -On 03/25/24 MRCP revealed-Status post cholecystectomy. Fluid and air collection in the gallbladder fossa could represent an abscess or biloma. No intrahepatic or extrahepatic biliary dilation. 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 daily # GERD -continue pantoprazole 40 mg IV daily # Sigmoid diverticulosis without acute diverticulitis -we will continue conservative management # mild hyponatremia, sodium 133 -no acute symptom -monitor BMP # hyperlipidemia -continue atorvastatin 20 mg q.h.s. Goals of care/advance care planning; FULL CODE; discussed with the patient PUD prophylaxis: Pantoprazole DVT prophylaxis: Lovenox Plan discussed with Dr. Champion,,, nursing staff, patient Total time spent on patient evaluation, chart review, assessment and plan, discussion discussion >20 minutes Plan discussed with: Patient Plan discussed with: Patient, Son (RN), Other My Orders My Orders Orders - SHANELL GARZA Procedure Category Date Status Time Metronidazole PHA 03/25/24 In Process 500mg/100ml (Flagyl 22:00 Atorvastatin (Lipitor) PHA 03/25/24 In Process 22:00 Date of Service: Mar 26, 2024 Billing Provider: MARILYN CHAMPION MD Common Visit Codes: [id number] INP/OBS CARE(HIGH) SHANELL GARZA Mar 26, 2024 11:14 MARILYN CHAMPION MD Mar 26, 2024 21:35
--- NOTE | 2024-03-26 14:37 | DVHPN2 ---
Progress Note Date Seen: Mar 26, 2024 Medical Necessity Reason Pt with a Central, PICC or Fol: No Objective vital signs Vital Sign Date Time Temp Pulse Resp B/P (MAP) Pulse Ox O2 Delivery O2 Flow Rate FiO2 03/26/24 12:52 98.1 76 20 106/44 (64) 93 98.1 03/26/24 08:00 Room Air* 0 21 Total Intake and Output 03/25/24 03/25/24 03/26/24 15:00 23:00 07:00 Intake Total 275 ml 1384 ml Balance 275 ml 1384 ml medications Current Medications Medications Dose Ordered Sig/Corina Route Start Time Stop Time Status Last Admin Dose Admin Sodium Chloride 10 ml Q8HR IV 03/25/24 06:00 03/26/24 05:32 10 ML Ondansetron HCl 4 mg Q4HP PRN IV 03/24/24 22:15 03/26/24 03:46 4 MG Acetaminophen 650 mg Q6HP PRN PO 03/24/24 22:15 Nitroglycerin 0.4 mg Q5MINP PRN SL 03/24/24 22:15 Morphine Sulfate 2 mg Q30M PRN IV 03/24/24 22:15 Morphine Sulfate 2 mg Q6HPRN PRN IV 03/25/24 01:45 Pantoprazole Sodium 40 mg DAILY IV 03/25/24 10:00 03/26/24 09:23 40 MG Losartan Potassium 50 mg DAILY PO 03/25/24 10:00 03/26/24 09:24 50 MG Sodium Chloride 1,000 ml @ 100 mls/hr Q10H IV 03/25/24 10:30 03/26/24 06:42 100 MLS/HR Cefepime HCl 50 ml @ 12.5 mls/hr Q12HR IV 03/25/24 22:00 03/26/24 09:21 12.5 MLS/HR Metronidazole 100 ml @ 100 mls/hr Q8HR IV 03/25/24 22:00 03/26/24 13:51 100 MLS/HR Atorvastatin Calcium 20 mg HS PO 03/25/24 22:00 03/25/24 21:00 20 MG laboratory and microbiology Laboratory Tests 03/26/24 05:37 Test 03/26/24 05:37 Range/Units Serum Glucose 91 74-106 mg/dL Problem List/Assessment/Plan Problem List/Assessment/Plan 03/25/24 patient had laparoscopic cholecystectomy done about two weeks ago by me, she came in yesterday due to sudden onset of epigastric pain and loss of appetite, now improved, the findings on CT scan are most likely due to hemostatic SNOW which was used in the Gallbladder fossa to assist with hemostasis during her operation, not an abscess, her WBC is normal and the deferential count is also normal.she is afebrile, wounds are clean and well approximated, there is no RUQ tenderness her LFT's are normal. Will order an MRCP due to intrahepatic bile duct dilatation, she can resume po intake and ambulation. Explained to patient and her son at bedside 03/26/24 FEELS BETTER, TOLERATING PO INTAKE, ABDOMEN NON TENDER, MRCP normal, remains afebrile, she is cleared to be discharged Plan discussed with: Patient JUDITH MACIAS MD Mar 26, 2024 14:37
[2024-03-27 04:55] VITALS: BP 125/66; PULSE 74; RESP 16; TEMP 97.9; O2SAT 97
[2024-03-27 06:35] LABS: Anion Gap 6 (5-15); Carbon Dioxide 25 mmol/L (20-31); Chloride 107 mmol/L (98-107); Potassium 4.2 mmol/L (3.5-5.1); Sodium 138 mmol/L (136-145)
[2024-03-27 06:36] LABS: Calcium 8.9 mg/dL (8.7-10.4)
[2024-03-27 06:41] LABS: BUN/Creatinine Ratio 11.7 (10.0-20.0); Blood Urea Nitrogen 11 mg/dL (9-23); Glucose 96 mg/dL (74-106)
[2024-03-27 07:04] LABS: Basophils # (auto) 0 10 ^3/uL (0-0.2); Basophils % (auto) 0.9 % (0.0-2.0); Eosinophils # (auto) 0.1 10 ^3/uL (0-0.8); Eosinophils % (auto) 1.8 % (0.0-7.0); Hemoglobin 9.9 g/dL (12.2-16.2); Lymphocytes # (auto) 1.6 10 ^3/uL (0.4-5.4); Lymphocytes % (auto) 34.2 % (10.0-50.0); Mean Corpuscular Hemoglobin 28.2 pg (28.0-32.0); Mean Corpuscular Hgb Conc. 32.9 g/dL (32.0-36.0); Mean Corpuscular Volume 85.6 fL (80.0-100.0); Monocytes # (auto) 0.6 10 ^3/uL (0-1.3); Monocytes % (auto) 14.1 % (0.0-12.0); Neutrophils # (auto) 2.2 10 ^3/uL (1.6-8.6); Nucleated Red Blood Cells % 0.1 %; Platelet Count (auto) 598 10^3/uL (140-450); Red Blood Cells 3.51 10^6/uL (4.0-5.20); Red Cell Distribution Width 14.7 % (11.8-14.3); White Blood Cell 4.6 10^3/uL (4.4-10.8)
[2024-03-27 09:00] VITALS: BP 115/62; PULSE 67; RESP 16; TEMP 97.1; O2SAT 97
--- NOTE | 2024-03-27 10:05 | DVHPN2 ---
Progress Note Date Seen: Mar 27, 2024 Medical Necessity Reason Pt with a Central, PICC or Fol: No Objective vital signs Vital Sign Date Time Temp Pulse Resp B/P (MAP) Pulse Ox O2 Delivery O2 Flow Rate FiO2 03/27/24 04:55 97.9 74 16 125/66 (85) 97 97.9 03/26/24 20:00 Room Air* 0 21 Total Intake and Output 03/26/24 03/26/24 03/27/24 15:00 23:00 07:00 Intake Total 150 ml 400 ml 1430 ml Balance 150 ml 400 ml 1430 ml medications Current Medications Medications Dose Ordered Sig/Corina Route Start Time Stop Time Status Last Admin Dose Admin Sodium Chloride 10 ml Q8HR IV 03/25/24 06:00 03/27/24 05:31 10 ML Ondansetron HCl 4 mg Q4HP PRN IV 03/24/24 22:15 03/26/24 17:24 4 MG Acetaminophen 650 mg Q6HP PRN PO 03/24/24 22:15 Nitroglycerin 0.4 mg Q5MINP PRN SL 03/24/24 22:15 Morphine Sulfate 2 mg Q30M PRN IV 03/24/24 22:15 Morphine Sulfate 2 mg Q6HPRN PRN IV 03/25/24 01:45 Pantoprazole Sodium 40 mg DAILY IV 03/25/24 10:00 03/26/24 09:23 40 MG Losartan Potassium 50 mg DAILY PO 03/25/24 10:00 03/26/24 09:24 50 MG Sodium Chloride 1,000 ml @ 100 mls/hr Q10H IV 03/25/24 10:30 03/27/24 02:45 100 MLS/HR Cefepime HCl 50 ml @ 12.5 mls/hr Q12HR IV 03/25/24 22:00 03/26/24 20:48 12.5 MLS/HR Metronidazole 100 ml @ 100 mls/hr Q8HR IV 03/25/24 22:00 03/27/24 05:31 100 MLS/HR Atorvastatin Calcium 20 mg HS PO 03/25/24 22:00 03/26/24 20:48 20 MG laboratory and microbiology Laboratory Tests 03/27/24 05:48 Test 03/27/24 05:48 Range/Units Serum Glucose 96 74-106 mg/dL Problem List/Assessment/Plan Problem List/Assessment/Plan 03/25/24 patient had laparoscopic cholecystectomy done about two weeks ago by me, she came in yesterday due to sudden onset of epigastric pain and loss of appetite, now improved, the findings on CT scan are most likely due to hemostatic SNOW which was used in the Gallbladder fossa to assist with hemostasis during her operation, not an abscess, her WBC is normal and the deferential count is also normal.she is afebrile, wounds are clean and well approximated, there is no RUQ tenderness her LFT's are normal. Will order an MRCP due to intrahepatic bile duct dilatation, she can resume po intake and ambulation. Explained to patient and her son at bedside 03/26/24 FEELS BETTER, TOLERATING PO INTAKE, ABDOMEN NON TENDER, MRCP normal, remains afebrile, she is cleared to be discharged 03/27/24 still c/o nausea, possibly due to medications, she does not need any antibiotic or narcotic pain medication, abdomen is non tender, non distended, WBC is normal and she remains afebrile, she can be discharged, to follow up with me in about two weeks. I will sign off,please recall if needed Plan discussed with: Patient, Daughter JUDITH MACIAS MD Mar 27, 2024 10:05
--- NOTE | 2024-03-27 10:49 | DVHDSRES ---
Discharge Summary Date of Admission Resident Creating Document: SHANELL GARZA RESIDENT Mar 24, 2024 at 22:07 Date of Discharge: Mar 27, 2024 Admitting Diagnosis Poor appetite and nausea and vomiting Labs/Diagnostic Data: Laboratory Results Test 03/27/24 05:48 03/26/24 05:37 03/25/24 07:55 03/25/24 06:55 White Blood Count 4.6 10^3/uL (4.4-10.8) Red Blood Count 3.51 10^6/uL (4.0-5.20) Hemoglobin 9.9 g/dL (12.2-16.2) Hematocrit 30.0 % (36.0-46.0) Mean Corpuscular Volume 85.6 fL (80.0-100.0) Mean Corpuscular Hemoglobin 28.2 pg (28.0-32.0) Mean Corpuscular Hemoglobin Concent 32.9 g/dL (32.0-36.0) Red Cell Distribution Width 14.7 % (11.8-14.3) Platelet Count 598 10^3/uL (140-450) Mean Platelet Volume 6.8 fL (6.9-10.8) Neutrophils (%) (Auto) 49.0 % (37.0-80.0) Lymphocytes (%) (Auto) 34.2 % (10.0-50.0) Monocytes (%) (Auto) 14.1 % (0.0-12.0) Eosinophils (%) (Auto) 1.8 % (0.0-7.0) Basophils (%) (Auto) 0.9 % (0.0-2.0) Neutrophils # (Auto) 2.2 10 ^3/uL (1.6-8.6) Lymphocytes # (Auto) 1.6 10 ^3/uL (0.4-5.4) Monocytes # (Auto) 0.6 10 ^3/uL (0-1.3) Eosinophils # (Auto) 0.1 10 ^3/uL (0-0.8) Basophils # (Auto) 0 10 ^3/uL (0-0.2) Nucleated Red Blood Cells 0.1 % Sodium Level 138 mmol/L (136-145) Potassium Level 4.2 mmol/L (3.5-5.1) Chloride Level 107 mmol/L (98-107) Carbon Dioxide Level 25 mmol/L (20-31) Anion Gap 6 (5-15) Blood Urea Nitrogen 11 mg/dL (9-23) Creatinine 0.94 mg/dL (0.550-1.02) Glomerular Filtration Rate Calc 62 mL/min (>90) BUN/Creatinine Ratio 11.7 (10.0-20.0) Serum Glucose 96 mg/dL (74-106) Calcium Level 8.9 mg/dL (8.7-10.4) Lipase 50 U/L (12-53) Lactic Acid Level 0.7 mmol/L (0.4-2.0) Stool Occult Blood Negative (Negative) Stool Occult Blood Sample #3 (Negative) Test 03/25/24 05:30 03/24/24 23:57 03/24/24 16:05 03/24/24 15:42 Prothrombin Time 11.4 sec (9.3-11.8) Prothrombin Time INR 1.08 (0.9-1.15) Activated Partial Thromboplast Time 31.7 SEC (24.5-34.5) Total Bilirubin 0.7 mg/dL (0.2-1.0) Aspartate Amino Transferase (AST) 15 U/L (13-40) Alanine Aminotransferase (ALT) 10 U/L (7-40) Alkaline Phosphatase 114 U/L (46-116) Total Protein 6.3 g/dL (5.7-8.2) Albumin 3.7 g/dL (3.2-4.8) Hemoglobin A1c 5.5 % A1C (<5.7) Vitamin B12 Level 926 pg/mL (211-911) Vitamin D 25-Hydroxy 51.8 ng/mL (30.0-100) Thyroid Stimulating Hormone (TSH) 1.35 uIU/mL (0.55-4.78) Urine Color Yellow (Yellow) Urine Clarity Clear (Clear) Urine pH 6.5 (5.0-9.0) Urine Specific [place] 1.016 (1.001-1.035) Urine Protein Negative (Negative) Urine Ketones 1+ (Negative) Urine Blood Negative /uL (Negative) Urine Nitrite Negative (Negative) Urine Bilirubin Negative (Negative) Urine Urobilinogen 8 mg/dL (Negative) Urine Leukocyte Esterase Negative /uL (Negative) Urine RBC 4 /hpf (0 - 4) Urine WBC 1 /hpf (0 - 5) Urine Squamous Epithelial Cells Few /hpf (<5) Urine Bacteria None seen /hpf (None Seen) Urine Glucose Normal mg/dL (Normal) Urine Opiates Screen Neg (NEGATIVE) Urine Fentanyl Screen Neg (NEGATIVE) Urine Barbiturates Screen Neg (NEGATIVE) Urine Phencyclidine Screen Neg (NEGATIVE) Urine Amphetamines Screen Neg (NEGATIVE) Urine Benzodiazepines Screen Neg (NEGATIVE) Urine Cocaine Screen Neg (NEGATIVE) Urine Cannabinoids Screen Neg (NEGATIVE) Other Laboratory Tests 03/27/24 05:48 Brief Hx & Hospital Course: Patient is 72 years old female with past medical history of hypertension, hyperlipidemia, GERD, recent history of cholecystectomy on 03/11/24 at [facility] came with a complaint of poor appetite and nausea and vomiting for last 2-3 days. As per patient shehas been having poor appetite, nausea, vomiting 2 times, greenish, no blood for last 2-3 days. Patient also endorsed abdominal pain, intermittent, crampy, 10, no radiation. Because of the pain and nausea and vomiting patient was not eating or drinking well for last couple of days. Patient denied any fever, chest pain, shortness of breath, acute joint pain or swelling, dizziness or dysarthria. Reviewed leukocytosis WBC 11.4, mild anemia hemoglobin 10.1, mild hyponatremia sodium 131, TYREL on CKD, serum creatinine 1.09, GFR 52, TSH 1.35, alkaline phosphatase/AST/ALT/bilirubin with a normal limit, urinalysis negative for UTI. UDS negative. Stool FOBT negative, CT abdomen revealed-Status post cholecystectomy. Mixed soft tissue density and gas in the gallbladder fossa for which a fluid collection or abscess is not excluded. Evaluation is limited without intravenous contrast. Sigmoid diverticulosis without acute diverticulitis. CXR no acute cardiopulmonary disease. CT abdomen and pelvis with contrast revealed- Status post cholecystectomy. There is a 5.1 cm abscess in the right gallbladder fossa. There is central intrahepatic biliary ductal dilatation. Sigmoid diverticulosis. On 03/25/24 MRCP revealed-Status post cholecystectomy. Fluid and air collection in the gallbladder fossa could represent an abscess or biloma. No intrahepatic or extrahepatic biliary dilation. No choledocholithiasis.FOBT negative. Patient was seen by surgeon Dr. Tubbs, and as per surgeon-the findings on CT scan are most likely due to hemostatic SNOW which was used in the Gallbladder fossa to assist with hemostasis during her operation, not an abscess. Patient's symptoms improved clinically. Patient is being discharged home with Zofran 4 mg q.6 H p.r.n., no antibiotic needed on discharge as per surgeon. Patient's meds were sent to the pharmacy electronically. Patient was advised to follow up with Dr. tubbs in 1-2 weeks and also to follow up with the PCP in 1 week. PMH-hypertension, hyperlipidemia, GERD, PSH- cholecystectomy on 03/11/2024., hysterectomy Allergy- NKDA Personal History/ Social History- lives with son, nonsmoker, nonalcoholic, no drug abuser Patient was seen today at the bedside. Patient reported poor appetite, Cardiovascular- deny acute chest pain or shortness of breath or cough or palpitation Respiratory- denies cough or short of breath or wheezing Gastrointestinal- denies any rectal bleeding, nausea or vomiting Musculoskeletal-denies acute joint swelling or tenderness or redness Neurological- denies acute dysarthria, dysphagia, change in vision Psychiatry- denies depression or SI or HI Skin- denies acute rash or purpura HEENT- PEERLA, no acute nasal discharge Cardiovascular- S1-S2 audible, rate and rhythm regular, no murmur Respiratory- CTAB, no wheeze or rhonchi Gastrointestinal-nontender, bowel sound+. Nondistended Musculoskeletal-no acute joint swelling or tenderness or redness# Lower extremity- Neurological- cranial nerves intact, no acute dysarthria or dysphagia Psychiatry- denies depression or SI or HI Skin- no acute rash or purpura Operations or Procedures PATIENT: ROXIE SILVA ACCT: [id number] UNIT: [id number] : 1945 LOC: [facility] ROOM / BED: [facility] / B AGE / SEX: 78 / F ADM STATUS: ADM IN SERVICE 4399 ORDERING PHYSICIAN: YANN COBOS RESIDENT PROCEDURE(s): ABPL - CT AB PEL WO CON-NO ORAL OR IV REASON: abd pain ORDER NUMBER(s): [id number], ACCESSION NUMBER(s): [id number] Exam: CT CT AB PEL WO CON-NO ORAL OR IV History: abd pain Comparison Study: None available at time of dictation. TECHNIQUE: Multidetector CT of the abdomen and pelvis was performed from lung bases to ischial tuberosities. Imaging was performed without IV contrast using axial images. Coronal and sagittal reformats were obtained from the axial data set by the technologist. Radiation Dose Information: CT Dose: CTDI volume is 8.4 mGy. Dose-length product is 410.99 mGy*cm FINDINGS: Evaluation of solid organs is limited due to lack of intravenous contrast use. Findings: Lung Bases: No acute or significant lung base finding. Normal heart size. No pleural or pericardial effusion. Liver: The liver is normal in size. No focal lesions. Gallbladder and Biliary Tree: There surgical clips in the gallbladder fossa. There is soft tissue density and gas in the gallbladder fossa. This measures approximately 3.7 cm. There is mild fat stranding adjacent to the gallbladder fossa. Spleen: Unremarkable Pancreas: The pancreas is grossly normal in appearance. Adrenal Glands: Unremarkable Kidneys: Kidneys are grossly normal without calculi or hydronephrosis. GI Tract: The stomach is grossly normal in appearance. Small bowel is normal in caliber. There is sigmoid diverticulosis without acute diverticulitis. Appendix not visualized, however no acute inflammatory changes in the right lower quadrant. Peritoneal cavity: No pneumoperitoneum. No ascites. Lymphadenopathy: No mesenteric, retroperitoneal or periportal lymphadenopathy. Abdominal Wall and Mesentery: Unremarkable. Vasculature: The visualized abdominal aorta is normal in size and caliber. Evaluation of abdominal and pelvic vessels is limited due to lack of intravenous contrast. There are atherosclerotic calcifications in the aorta. Pelvic Organs: Unremarkable Urinary Bladder: Grossly unremarkable for degree of distention. Musculoskeletal: No aggressive focal bony lesions, acute fractures or dislocation. Soft tissues: Skin deepthi project over the subcutaneous abdominal wall. IMPRESSION: 1. Status post cholecystectomy. Mixed soft tissue density and gas in the gallbladder fossa for which a fluid collection or abscess is not excluded. Evaluation is limited without intravenous contrast. CT of the abdomen pelvis with intravenous contrast is recommended for further evaluation. 2. Sigmoid diverticulosis without acute diverticulitis. Radiation optimization: All CT scans at this facility use at least one of these dose optimization techniques: automated exposure control mA and/or kV adjustment per patient size (includes targeted exams where dose is matched to clinical indication) or iterative reconstruction. ATED BY: BC RUSSO MD DICTATED DATE/TIME: 03/25/24 8330 SIGNED BY: BC RUSSO MD SIGNED DATE/TIME: 03/25/24406 CC: Signed PATIENT: ROXIE SILVA ACCT: [id number] UNIT: [id number] : 1945 LOC: [facility] ROOM / BED: [address] [place] [address] AGE / SEX: 78 / F ADM STATUS: ADM IN SERVICE 0830 ORDERING PHYSICIAN: NIKOLAY MCCLELLAN PROCEDURE(s): CXR1 - CHEST XRAY 1 VIEW REASON: evaluate lung parenchyma ORDER NUMBER(s): [id number], ACCESSION NUMBER(s): [id number] CHEST RADIOGRAPH Indication:evaluate lung parenchyma Technique: Single frontal view of the chest was obtained COMPARISON: None FINDINGS: Lines and Tubes: None Lungs: Clear Pleura: No effusion. No pneumothorax. Cardiomediastinal contours: Unremarkable Bones: Unremarkable IMPRESSION: No acute disease. ATED BY: JORDAN HERNANDEZ MD DICTATED DATE/TIME: 03/25/24858 SIGNED BY: JORDAN HERNANDEZ MD SIGNED DATE/TIME: 03/25/24858 CC: PATIENT: ROXIE SILVA ACCT: [id number] UNIT: [id number] : 1945 LOC: [facility] ROOM / BED: [address] [place] [address] AGE / SEX: 78 / F ADM STATUS: ADM IN SERVICE 26 ORDERING PHYSICIAN: MARILYN STERN MD PROCEDURE(s): ABPLIV - CT AB PEL WITH IV CON ONLY REASON: abd pain ORDER NUMBER(s): [id number], ACCESSION NUMBER(s): [id number] Exam: CT CT AB PEL WITH IV CON ONLY History: abd pain Comparison Study: TECHNIQUE: A digital flight director image was obtained. During the uneventful, intravenous administration of contrast material, multislice data acquisition was obtained through the abdomen and pelvis. The data set was subsequently reconstructed into axial images. Images were reviewed on a work station using a combination of axial and multiplanar using a variety of window levels and settings. 100 cc of Omnipaque 300 contrast was injected intravenously. All CT scans at this medical facility are performed using dose modulation techniques as appropriate to a performed exam including the following:Automated exposure control was utilized; adjustment of the MA and/or KV according to patient size; and use of iterative reconstruction technique. Radiation Dose Information: CT Dose: CTDI volume is 5.38 mGy. Dose-length product is 304.94 mGy*cm Comparison: CT CT AB PEL WO CON-NO ORAL OR IV on DOS: 03/24/24 FINDINGS: There are postsurgical changes related to cholecystectomy. There is an approximately 5.1 cm fluid collection with pockets of air and thickened enhancing brooks in the gallbladder fossa compatible with an abscess. There are mild hypoenhancing changes in the adjacent hepatic parenchyma which May relate to edematous changes. The liver parenchyma otherwise appears within normal limits. There is central intrahepatic biliary ductal dilatation. The pancreas, kidneys, adrenal glands, and spleen appear within normal limits. There is no evidence of abdominal lymphadenopathy. There is no free fluid or free air. The stomach grossly appears unremarkable. The small and large bowel loops demonstrate normal caliber. There are multiple diverticula in the sigmoid colon without evidence of acute diverticulitis. The abdominal aorta and IVC appear within normal limits. The bladder appears within normal limits the degree of distention. Uterus is surgically absent. There is no evidence of a pelvic mass or lymphadenopathy. There is no free fluid collection. There is a fat containing right inguinal hernia. Lung bases are clear. There is no acute osseous abnormality. IMPRESSION: 1. Status post cholecystectomy. There is a 5.1 cm abscess in the right gallbladder fossa. There is central intrahepatic biliary ductal dilatation. 2. Sigmoid diverticulosis. HS:Y ATED BY: JAIME ROJO MD DICTATED DATE/TIME: 03/25/24 111 SIGNED BY: JAIME ROJO MD SIGNED DATE/TIME: 03/25/24 111 CC: Signed PATIENT: ROXIE SILVA ACCT: [id number] UNIT: [id number] : 1945 LOC: [facility] ROOM / BED: 0249 / B AGE / SEX: 78 / F ADM STATUS: ADM IN SERVICE 1417 ORDERING PHYSICIAN: JUDITH TUBBS MD PROCEDURE(s): MRCP - MRCP MRI REASON: r/o choledocholithiasis ORDER NUMBER(s): [id number], ACCESSION NUMBER(s): [id number] MRI Abdomen, without IV Contrast Exam Date: 03/25/2024 02:43 PM Comparison: None History: r/o choledocholithiasis Technique: Multisequence multiplanar MRI images were obtained of the abomen. MRCP including 3D SPACE, Radial 3D slabs and SPACE 3D MIP images Findings: Liver: The liver is normal in size without focal lesions. Normal liver contour. Spleen: Unremarkable. Pancreas: The pancreas is normal in appearance without focal lesions. Gallbladder and ducts: Gallbladder is surgically absent. There is a fluid and air collection in the gallbladder fossa measuring up to 50mm. The cystic duct, right and left hepatic ducts, common hepatic duct, and common bile ducts are unremarkable. The pancreatic duct is within normal limits. Adrenal glands: Unremarkable. Kidneys: Normal enhancement without suspicious lesions or hydronephrosis. Visualized bowel: Grossly unremarkable. Vasculature: Unremarkable. Lymphadenopathy: No evidence for lymphadenopathy. Ascites: Absent. Musculoskeletal: Bone marrow signal is normal. IMPRESSION: 1. Status post cholecystectomy. Fluid and air collection in the gallbladder fossa could represent an abscess or biloma. No intrahepatic or extrahepatic biliary dilation. No choledocholithiasis. HS:Y. ATED BY: GIGI LUCERO MD DICTATED DATE/TIME: 03/25/241627 SIGNED BY: GIGI LUCERO MD SIGNED DATE/TIME: 03/25/241627 CC: Condition at Discharge: Stable Final Diagnosis/Problems List Postoperative nausea and vomiting, abscess ruled out as per surgeon Status post laparoscopic cholecystectomy on 03/11/2024 Poor appetite likely due to postoperative complication Intrahepatic bile duct dilatation ruled out, no sepsis Hyponatremia Suspected TYREL on CKD stage 3 likely due to VMN normocytic normochromic anemia likely due to CKD Hypertension GERD Sigmoid diverticulosis without acute diverticulitis Hyperlipidemia Discharge Disposition: Home Discharge Instruct/Medications Diet: Cardiac 2g Na,low cholest, See Comment Diet comment: Low-fat diet Activity: Light activity Activity comment: Please wear abdominal binder when walking around, no strenuous exercise for next 2 weeks and follow up with the surgeon and follow surgeon's recommendation please Follow Up/Referral: Please follow up with the primary care physician in 1 week and also follow up with the surgeon in 1-2 weeks Medications: Zofran 4 mg p.o. q.6h p.r.n. Discharge Statement: "Patient was advised to return to the ER or call 911 if any headaches, dizziness, shortness of breath, chest pain, abdominal pain, bleeding, fevers, or worsening of medical condition. Patient was counseled about treatment plan, medications, possible side effects, patientverbalized understanding. All questions were answered to the best of my ability. This discharge took greater then 30 minutes in planning, reviewing documentation, counseling the patient, and discussing with other team members." ASSESSMENT ASSESSMENT Assessment Postoperative nausea and vomiting, abscess ruled out as per surgeon Status post laparoscopic cholecystectomy on 03/11/2024 Poor appetite likely due to postoperative complication Intrahepatic bile duct dilatation ruled out, no sepsis Hyponatremia Suspected TYREL on CKD stage 3 likely due to VMN normocytic normochromic anemia likely due to CKD Hypertension GERD Sigmoid diverticulosis without acute diverticulitis Hyperlipidemia Date of Service: Mar 27, 2024 Billing Provider: FRED HICKS MD Common Visit Codes: 64023-MQQ/OBS DISCH DAY >30min SHANELL GARZA RESIDENT Mar 27, 2024 10:49 FRED HICKS MD Mar 31, 2024 10:02
[2024-03-27] MEDS ORDERED: ZOFR4T PO (11:12)
[2024-03-27] MEDS ORDERED: CIPR500T4 PO (12:33)
[2024-03-27] MEDS ORDERED: MET500T PO (12:33)
[2024-03-27 13:00] VITALS: BP 124/53; PULSE 74; RESP 16; TEMP 98.4; O2SAT 95
[2024-03-27 14:01] VITALS: BP 115/62
== END 2024-03-27 16:00 | disposition home or self-care (01) | DRG 393 ==
LOC: ER 13:59 → OVERFLOW 22:07 → EAST 23:51
PROVIDERS: ADMIT Internal Medicine; ATTEND Emergency Medicine
DX: K91.89 Other postprocedural complications and disorders of digestive system (principal); N17.0 Acute kidney failure with tubular necrosis; E87.1 Hypo-osmolality and hyponatremia; E86.0 Dehydration; K57.30 Diverticulosis of large intestine without perforation or abscess without bleeding; D72.829 Elevated white blood cell count, unspecified; E78.5 Hyperlipidemia, unspecified; K21.9 Gastro-esophageal reflux disease without esophagitis; I12.9 Hypertensive chronic kidney disease with stage 1 through stage 4 chronic kidney disease, or unspecified chronic kidney disease; N18.30 Chronic kidney disease, stage 3 unspecified; D63.1 Anemia in chronic kidney disease; Y83.8 Other surgical procedures as the cause of abnormal reaction of the patient, or of later complication, without mention of misadventure at the time of the procedure; Y82.8 Other medical devices associated with adverse incidents; Z90.49 Acquired absence of other specified parts of digestive tract; Y92.89 Other specified places as the place of occurrence of the external cause
CPT/HCPCS: 36415; 71045; 74176; 74177; 74181; 80048; 80053; 80307; 81001; 82270; 82306; 82607; 83036; 83605; 83690; 84443; 85025; 85610; 85730; 97163; 99291; G0378; J2405; J2470; J3490

== ENCOUNTER 2024-05-24 16:38 | Inpatient (IN) | payer OTHER, MEDICAID ==
[~2024-05-24] VITALS: Ht 157.5 cm; Wt 57.2 kg
[~2024-05-24 16:38] MED LIST: ACET1CAP14 PO; BACDST PO; LOSA-534 PO; LOVA10TA2 PO; OMEP-434 PO; ZOFR4T PO
--- NOTE | 2024-05-24 16:52 | ED.PDOC ---
GI ASSESSMENT HPI Comments 78 y.o female presents to the ED for a chief complaint of right lower quadrant pain that started in August of 2023. Patient reports having an ultrasound done to rule out hernia, states her results got lost and has not followed up with PCP due to controlling pain at home with OTC medication. Patient reports today, she felt a lump move up and had sharp 10/10 pain with no associating symptoms. Patient still has pain now but has improved down to a 8/10. Time Seen by MD: 16:44 Reviewed Notes: Nurses Notes, Medications, Allergies Allergies: Coded Allergies: NO KNOWN ALLERGIES (Unverified , 03/24/24) Home Meds Active Scripts Ondansetron Odt 4MG Tab (ZOFRAN PO) 4 Mg Tb, 4 MG PO Q8HP PRN for 5 Days, #15 TAB ODT TAB-DISSOLVE IN MOUTH, THEN SWALLOW Prov:NIKOLAY MCCLELLAN RESIDENT 03/27/24 Reported Medications Omeprazole Magnesium (Omeprazole) 20 Mg Tab, 20 MG PO, TAB 03/25/24 Acetaminophen (Tylenol) 325 Mg Cap, 500 MG PO, CAP 03/25/24 Losartan Potassium (Losartan Potassium) 50 Mg Tab, 1 TAB PO DAILY, #30 TAB 5 Refills 03/25/24 Sulfamethoxazole W/Trimethopri (Bactrim Ds Tablet) 1 Tab Tb, 1 TAB PO BID, TAB 03/25/24 Lovastatin (Mevacor) 10 Mg Tab, 10 MG PO, TAB 03/25/24 Ondansetron Odt 4MG Tab (ZOFRAN PO) 4 Mg Tb, 4 MG PO, TAB ODT TAB-DISSOLVE IN MOUTH, THEN SWALLOW 03/25/24 Information Source: Patient Mode of Arrival: Ambulatory Timing: Came on: Gradually Duration: Since onset Quality: Sharp Vomitus: None Stool: Normal Severity: Moderate Recent: None Recent Hx of: None Pain Location: RLQ Modifying Factors: Nothing Associated sign and symptoms: Abdominal Pain Past Medical History PAST MEDICAL HISTORY: Denies Surgical History: Cholecystectomy, , Hysterectomy PULL OVER History: Denies all PULL OVER Hx Family History Family History: Reviewed,noncontributory to illness Social History Smoker: Non-Smoker Alcohol: Denies ETOH Use Drugs: Denies Drug Use Lives In: Home Constitutional: denies: chills, diaphoresis, fatigue, fever, malaise, sweats, weakness, others EENTM: denies: blurred vision, double vision, ear bleeding, ear discharge, ear drainage, ear pain, ear ringing, eye pain, eye redness, hearing loss, mouth pain, mouth swelling, nasal discharge, nose bleeding, nose congestion, nose pain, photophobia, tearing, throat pain, throat swelling, voice changes, others Respiratory: denies: cough, hemoptysis, orthopnea, SOB at rest, shortness of breath, SOB with excertion, stridor, wheezing, others Cardiovascular: denies: chest pain, dizzy spells, diaphoresis, Dyspnea on exertion, edema, irregular heart beat, left arm pain, lightheadedness, palpitations, PND, syncope, others Gastrointestinal: reports: abdominal pain; denies: abdomen distended, blood streaked bowels, constipated, diarrhea, dysphagia, difficulty swallowing, hematemesis, melena, nausea, poor appetite, poor fluid intake, rectal bleeding, rectal pain, vomiting, others Genitourinary: denies: abnormal vagina bleeding, burning, dyspareunia, dysuria, flank pain, frequency, hematuria, incontinence, pain, , vagina discharge, urgency, others Neurological: denies: dizziness, fainting, headache, left sided numbness, left sided weakness, numbness, paresthesia, pre-existing deficit, right sided numbness, right sided weakness, seizure, speech problems, tingling, tremors, weakness, others Musculoskeletal: reports: back pain; denies: gout, joint pain, joint swelling, muscle pain, muscle stiffness, neck pain, others Integumetry: denies: bruises, change in color, change in hair/nails, dryness, laceration, lesions, lumps, rash, wounds, others Allergic/Immunocompromised: denies: Difficulty Healing, Frequent Infections, Hives, Itching, others Hematologic/Lymphatic: denies: anemia, blood clots, easy bleeding, easy bruising, swollen glands, others Endocrine: denies: excessive hunger, excessive sweating, excessive thirst, excessive urination, flushing, intolerance to cold, intolerance to heat, unexplained weight gain, unexplained weight loss, others Psychiatric: denies: anxiety, bipolar disorder, depression, hopeless, panic disorder, schizophrenia, sleepless, suicidal, others All Other Systems: Reviewed and Negative Physical Exam General Appearance: Mild Distress HEENT: Normal ENT Inspection, Pharynx Normal, TMs Normal Neck: Full Range of Motion, Non-Tender, Normal, Normal Inspection Respiratory: Chest Non-Tender, Lungs Clear, No Accessory Muscle Use, No Respiratory Distress, Normal Breath Sounds Cardiovascular: No Edema, No JVD, No Murmur, No Gallop, Normal Peripheral Pulses, Regular Rate/Rhythm Breast Exam: Deferred Gastrointestinal: No Organomegaly, No Pulsatile Mass, Normal Bowel Sounds, RLQ, Soft Genitalia: Deferred Pelvic: Deferred Rectal: Deferred Extremities: No calf tenderness, Normal capillary refill, Normal inspection, Normal range of motion, Non-tender, No pedal edema Musculoskeletal : Apperance: Normal 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 Was a procedure done?: No GI differential Dx Differential Diagnosis: Appendicitis, Esophagitis, Hernia, Trauma intraabdominal X-Ray, Labs, Meds, VS Vital Signs Date Time Temp Pulse Resp B/P (MAP) Pulse Ox O2 Delivery O2 Flow Rate FiO2 05/24/24 16:55 98.3 81 18 129/50 (76) 97 Lab Test 05/24/24 17:31 05/24/24 17:00 Range/Units White Blood Count 6.5 4.4-10.8 10^3/uL Red Blood Count 3.94 L 4.0-5.20 10^6/uL Hemoglobin 11.8 L 12.2-16.2 g/dL Hematocrit 34.9 L 36.0-46.0 % Mean Corpuscular Volume 88.6 80.0-100.0 fL Mean Corpuscular Hemoglobin 30.0 28.0-32.0 pg Mean Corpuscular Hemoglobin Concent 33.9 32.0-36.0 g/dL Red Cell Distribution Width 17.0 H 11.8-14.3 % Platelet Count 256 140-450 10^3/uL Mean Platelet Volume 8.2 6.9-10.8 fL Neutrophils (%) (Auto) 55.2 37.0-80.0 % Lymphocytes (%) (Auto) 34.7 10.0-50.0 % Monocytes (%) (Auto) 8.5 0.0-12.0 % Eosinophils (%) (Auto) 1.2 0.0-7.0 % Basophils (%) (Auto) 0.4 0.0-2.0 % Neutrophils # (Auto) 3.6 1.6-8.6 10 ^3/uL Lymphocytes # (Auto) 2.2 0.4-5.4 10 ^3/uL Monocytes # (Auto) 0.5 0-1.3 10 ^3/uL Eosinophils # (Auto) 0.1 0-0.8 10 ^3/uL Basophils # (Auto) 0 0-0.2 10 ^3/uL Nucleated Red Blood Cells 0.2 % Sodium Level 139 136-145 mmol/L Potassium Level 4.6 3.5-5.1 mmol/L Chloride Level 106 98-107 mmol/L Carbon Dioxide Level 26 20-31 mmol/L Anion Gap 7 5-15 Blood Urea Nitrogen 22 9-23 mg/dL Creatinine 1.12 H 0.550-1.02 mg/dL Glomerular Filtration Rate Calc 50 >90 mL/min BUN/Creatinine Ratio 19.6 10.0-20.0 Serum Glucose 118 H 74-106 mg/dL Calcium Level 9.6 8.7-10.4 mg/dL Total Bilirubin 0.3 0.2-1.0 mg/dL Aspartate Amino Transferase (AST) 18 13-40 U/L Alanine Aminotransferase (ALT) 14 7-40 U/L Alkaline Phosphatase 125 H 46-116 U/L Total Protein 7.0 5.7-8.2 g/dL Albumin 4.4 3.2-4.8 g/dL Urine Color Light-yellow Yellow Urine Clarity Clear Clear Urine pH 6.0 5.0-9.0 Urine Specific [place] 1.022 1.001-1.035 Urine Protein Negative Negative Urine Ketones Negative Negative Urine Blood Negative Negative /uL Urine Nitrite Negative Negative Urine Bilirubin Negative Negative Urine Urobilinogen 2 H Negative mg/dL Urine Leukocyte Esterase Negative Negative /uL Urine RBC 2 0 - 4 /hpf Urine WBC 1 0 - 5 /hpf Urine Squamous Epithelial Cells Few <5 /hpf Urine Bacteria None seen None Seen /hpf Urine Glucose Normal Normal mg/dL The patient's CBC is within normal limits The chemistry panel is within normal limits except for creatinine of 1.12 The urine test is negative At this time, the patient's CT scan of the abdomen and pelvis shows: IMPRESSION: Cholecystectomy clips with interval resolution of the previously seen gallbladder fossa fluid collection. Moderate colonic diverticulosis. At this time, the patient was being admitted to the hospitalist Images Reviewed?: Images reviewed and evaluated by me Time of 1ST Reevaluation: 16:49 Reevaluation 1ST: Unchanged Patient Education/Counseling: Diagnosis, Treatment, Prognosis Family Education/Counseling: No Family Present Departure 1 Departure Time of Disposition: 18:49 Impression: Primary Impression: Intractable abdominal pain Disposition: ADMITTED INPATIENT Admit to: Med Surg Condition: Fair Critical Care Note Critical Care Time?: No Stability Stability form required: Yes Unstable for transfer: ED Physician Assesment (Clinical assesment) I personally scribed for KAYA RAMIREZ MD ([email or web address]) on 05/24/24 at 16:52. Electronically submitted by Agnieszka Renee ([facility]). KAYA RAMIREZ MD May 24, 2024 16:52
[2024-05-24 17:22] LABS: Urine Bacteria None Seen /hpf (None Seen)
[2024-05-24 18:03] LABS: Basophils # (auto) 0 10 ^3/uL (0-0.2); Basophils % (auto) 0.4 % (0.0-2.0); Eosinophils # (auto) 0.1 10 ^3/uL (0-0.8); Eosinophils % (auto) 1.2 % (0.0-7.0); Hematocrit 34.9 % (36.0-46.0); Hemoglobin 11.8 g/dL (12.2-16.2); Lymphocytes # (auto) 2.2 10 ^3/uL (0.4-5.4); Lymphocytes % (auto) 34.7 % (10.0-50.0); Mean Corpuscular Hgb Conc. 33.9 g/dL (32.0-36.0); Mean Corpuscular Volume 88.6 fL (80.0-100.0); Monocytes # (auto) 0.5 10 ^3/uL (0-1.3); Monocytes % (auto) 8.5 % (0.0-12.0); Neutrophils # (auto) 3.6 10 ^3/uL (1.6-8.6); Neutrophils % (auto) 55.2 % (37.0-80.0); Nucleated Red Blood Cells % 0.2 %; Platelet Count (auto) 256 10^3/uL (140-450); Red Blood Cells 3.94 10^6/uL (4.0-5.20); White Blood Cell 6.5 10^3/uL (4.4-10.8)
[2024-05-24 18:12] LABS: Alanine Aminotransferase 14 U/L (7-40); Anion Gap 7 (5-15); Aspartate Aminotransferase 18 U/L (13-40); BUN/Creatinine Ratio 19.6 (10.0-20.0); Blood Urea Nitrogen 22 mg/dL (9-23); Calcium 9.6 mg/dL (8.7-10.4); Carbon Dioxide 26 mmol/L (20-31); Chloride 106 mmol/L (98-107); Potassium 4.6 mmol/L (3.5-5.1); Sodium 139 mmol/L (136-145)
[2024-05-24 18:13] LABS: Urine Blood Negative /uL (Negative); Urine Clarity Clear (Clear); Urine Color Light-Yellow (Yellow); Urine Protein, UAD Negative (Negative); Urine Specific Gravity 1.022 (1.001-1.035); Urine Squamous Epithelial Cell FEW /hpf (<5); Urine Urobilinogen 2 mg/dL (Negative); Urine WBC 1 /hpf (0 - 5)
[2024-05-24 18:13] LABS: Albumin 4.4 g/dL (3.2-4.8); Alkaline Phosphatase 125 U/L (46-116); Bilirubin, Total 0.3 mg/dL (0.2-1.0); Glucose 118 mg/dL (74-106)
--- NOTE | 2024-05-24 18:16 | DVH ---
CT CT AB PEL WO CON-NO ORAL OR IV INDICATION: pain EXAM DATE: 05/24/2024 05:43 PM COMPARISON: CT CT AB PEL WO CON-NO ORAL OR IV on DOS: 03/24/24 RADIATION DOSE: CTDIvol: 6.4 mGy, DLP: 334.45 mGy*cm PROCEDURE: Helical CT images were obtained of the abdomen and pelvis without IV contrast Sagittal an d coronal reconstructions are provided. ORAL CONTRAST: None. ADDITIONAL IMAGES / REFORMATS: None All CT scans at this medical facility are performed using dose modulation techniques as appropriate t o a performed exam including the following: Automated exposure control was utilized; adjustment of th e MA and/or KV according to patient size; and use of iterative reconstruction technique. FINDINGS: LUNG BASE: Mild bibasilar atelectasis. LIVER: Normal. GALLBLADDER AND BILIARY TREE: Cholecystectomy clips with interval resolution of the previously seen g allbladder fossa fluid collection. No intra- or extrahepatic biliary ductal dilation. PANCREAS: Normal. SPLEEN: Normal. BOWEL: Moderate colonic diverticulosis. ADRENALS: Normal. KIDNEYS AND URETER: Normal. BLADDER: Normal. REPRODUCTIVE ORGANS: Normal. LYMPH NODES:No lymphadenopathy. PERITONEUM: No ascites or free air. No other fluid collection. VESSELS: Scattered atherosclerotic calcifications are noted. RETROPERITONEUM: Normal. ABDOMINAL WALL: Fat containing right inguinal hernia. BONES: Scattered osseous degenerative changes are noted. IMPRESSION: Cholecystectomy clips with interval resolution of the previously seen gallbladder fossa fluid collect ion. Moderate colonic diverticulosis.
[2024-05-24] MEDS ORDERED: ONDANSETRON HCL 4 MG/2 ML VIAL IV PRN (21:45)
[2024-05-24] MEDS ORDERED: HYDROcodone-ACET 5/325MG TAB PO PRN (21:45)
[2024-05-24] MEDS ORDERED: ACETAMINOPHEN 325 MG TAB PO PRN (21:45)
[2024-05-24 22:17] VITALS: PULSE 74; RESP 18; O2SAT 98
[2024-05-24 22:56] LABS: COVID19 ANTIGEN SOFIA FIA NEGATIVE (NEGATIVE)
[2024-05-24 22:57] LABS: Rapid Influenza A Negative (Negative); Rapid Influenza B Negative (Negative)
[2024-05-25] VITALS (7 sets, daily range): BP systolic 123–142; BP diastolic 45–67; PULSE 66–76; RESP 15–20; TEMP 98–98.3; O2SAT 96–100
--- NOTE | 2024-05-25 00:10 | DVHHPRES ---
History of Present Illness Resident Creating Document: JHSIERRAELVISOLIVA RESIDENT History of Present Illness Patient is a 78-year-old female with a past medical history are described below came to the ED with a chief complaint of right inguinal pain. Patient reports since that she has been having off and on pain in the right lower quadrant and the right inguinal area since August 2023 but reports that since the last 2 days she has been having episodes of severe pain, sharp in character, 10/10 on intensity, nonradiating, no associated aggravating factors and also feels that a ball like mass comes out in the right lower quadrant. Patient denied recent flu-like symptoms of cough, congestion, headache and does not report recent nausea, vomiting, diarrhea. Patient reports normal bowel movements and denies constipation. Patient also reports intermittent epigastric pain which she attributes to the hiatal hernia and says that it is chronic and she takes omeprazole for it. Patient denied chest pain, shortness of breath, palpitations, dizziness. Past medical history: Hypertension, hyperlipidemia, GERD Past surgical history: Cholecystectomy ( February 2024), hysterectomy Social history: Patient lives with family and denies smoking, alcohol, drug use Home medications: Losartan 50 mg q.d., atorvastatin 40 mg hs, omeprazole 40 mg q.d. Review of Systems Review of Systems At the time of examination patient reports mild right lower quadrant/ suprapubic pain which is episodic and intermittent, currently reported it as mild pain/discomfort Denies nausea, vomiting, diarrhea Reported normal bowel movements, no constipation Allergies: Coded Allergies: NO KNOWN ALLERGIES (Unverified , 03/24/24) Medications Current Medications Medications Dose Ordered Sig/Corina Route Start Time Stop Time Status Last Admin Dose Admin Acetaminophen/ Hydrocodone Bitart 1 tab Q4HPRN PRN PO 05/24/24 21:45 Acetaminophen 650 mg Q4HP PRN PO 05/24/24 21:45 Ondansetron HCl 4 mg Q4HPRN PRN IV 05/24/24 21:45 Famotidine 20 mg DAILY IV 05/25/24 10:00 Losartan Potassium 25 mg DAILY PO 05/25/24 10:00 Exam Vital Signs Vital Signs Date Time Temp Pulse Resp B/P (MAP) Pulse Ox O2 Delivery O2 Flow Rate FiO2 05/24/24 22:17 74 18 146/82 (103) 98 05/24/24 22:17 Room Air* 0 21 05/24/24 16:55 98.3 Exam Physical Examination Constitutional: Patient was alert and oriented to place and person and does not appear to be in any acute distress Gen - no pallor, no icterus, no cyanosis, no clubbing, no LAD, no edema . Skin - Patients skin is warm and dry. HEENT - normocephalic, atraumatic, moist mucous membranes. Neck - full ROM, no LAD Pulmonary - B/L vesicular breath sounds. no crackles , no wheezing cardiovascular - normal S1,S2 heard. no murmurs heard. peripheral pulses radial 2+, pedal 2+. GI - soft abdomen without tenderness to palpation . no hepatospleenomegaly. Normoactive bowel sounds Neurological - Bilateral upper extremity strength 5/5, bilateral lower extremity strength 5/5, no facial droop, normal speech, no tremor, no sensory deficiets. Labs/Xrays Labs Test 05/24/24 22:21 05/24/24 17:31 05/24/24 17:00 Range/Units Influenza Type A Antigen Negative Negative Influenza Type B Antigen Negative Negative SARS-CoV-2 Antigen (Rapid) Negative NEGATIVE White Blood Count 6.5 4.4-10.8 10^3/uL Red Blood Count 3.94 L 4.0-5.20 10^6/uL Hemoglobin 11.8 L 12.2-16.2 g/dL Hematocrit 34.9 L 36.0-46.0 % Mean Corpuscular Volume 88.6 80.0-100.0 fL Mean Corpuscular Hemoglobin 30.0 28.0-32.0 pg Mean Corpuscular Hemoglobin Concent 33.9 32.0-36.0 g/dL Red Cell Distribution Width 17.0 H 11.8-14.3 % Platelet Count 256 140-450 10^3/uL Mean Platelet Volume 8.2 6.9-10.8 fL Neutrophils (%) (Auto) 55.2 37.0-80.0 % Lymphocytes (%) (Auto) 34.7 10.0-50.0 % Monocytes (%) (Auto) 8.5 0.0-12.0 % Eosinophils (%) (Auto) 1.2 0.0-7.0 % Basophils (%) (Auto) 0.4 0.0-2.0 % Neutrophils # (Auto) 3.6 1.6-8.6 10 ^3/uL Lymphocytes # (Auto) 2.2 0.4-5.4 10 ^3/uL Monocytes # (Auto) 0.5 0-1.3 10 ^3/uL Eosinophils # (Auto) 0.1 0-0.8 10 ^3/uL Basophils # (Auto) 0 0-0.2 10 ^3/uL Nucleated Red Blood Cells 0.2 % Sodium Level 139 136-145 mmol/L Potassium Level 4.6 3.5-5.1 mmol/L Chloride Level 106 98-107 mmol/L Carbon Dioxide Level 26 20-31 mmol/L Anion Gap 7 5-15 Blood Urea Nitrogen 22 9-23 mg/dL Creatinine 1.12 H 0.550-1.02 mg/dL Glomerular Filtration Rate Calc 50 >90 mL/min BUN/Creatinine Ratio 19.6 10.0-20.0 Serum Glucose 118 H 74-106 mg/dL Calcium Level 9.6 8.7-10.4 mg/dL Total Bilirubin 0.3 0.2-1.0 mg/dL Aspartate Amino Transferase (AST) 18 13-40 U/L Alanine Aminotransferase (ALT) 14 7-40 U/L Alkaline Phosphatase 125 H 46-116 U/L Total Protein 7.0 5.7-8.2 g/dL Albumin 4.4 3.2-4.8 g/dL Urine Color Light-yellow Yellow Urine Clarity Clear Clear Urine pH 6.0 5.0-9.0 Urine Specific [place] 1.022 1.001-1.035 Urine Protein Negative Negative Urine Ketones Negative Negative Urine Blood Negative Negative /uL Urine Nitrite Negative Negative Urine Bilirubin Negative Negative Urine Urobilinogen 2 H Negative mg/dL Urine Leukocyte Esterase Negative Negative /uL Urine RBC 2 0 - 4 /hpf Urine WBC 1 0 - 5 /hpf Urine Squamous Epithelial Cells Few <5 /hpf Urine Bacteria None seen None Seen /hpf Urine Glucose Normal Normal mg/dL Assessment/Plan Assessment/Plan Acute abdominal pain Right inguinal hernia direct vs indirect ?Strangulated S/P cholecystectomy - CT abdomen pelvis shows fat containing right inguinal hernia - patient kept NPO except for medication - no signs of sepsis - surgery consult pending - Zofran p.r.n. for nausea vomiting - acetaminophen and Condon for pain control - 1 L NS at 100 mL/hour GERD - on Protonix 40 mg IV qd H/o hypertension - continued on low-dose losartan 25 mg Goals of care discussed patient for over 21 minutes. Full code Plan discussed with Dr. Flood Plan discussed with: Patient My Orders Orders - LOKI NAIDU Procedure Category Date Status Time Admit ADMIT 05/24/24 Transmitted 21:39 * Surgical Consult CONS 05/24/24 Transmitted Npo (Nothing By DIET 05/25/24 Transmitted Mouth) Diet Breakfast Hydrocodone-Acet PHA 05/24/24 In Process 5/325mg Tab ([place] 21:45 Acetaminophen Tablet PHA 05/24/24 In Process (Tylenol Tablet) 21:45 Ondansetron Hcl PHA 05/24/24 In Process (Zofran) 21:45 Famotidine Injection PHA 05/25/24 In Process (Pepcid Injection) 10:00 Losartan Tablet PHA 05/25/24 In Process (Cozaar Tablet) 10:00 Sodium Chloride 0.9% PHA 05/24/24 In Process 22:00 Code Status CODE 05/24/24 Transmitted 21:57 Date of Service: May 24, 2024 Billing Provider: SHONNA FLOOD MD Common Visit Codes: [id number] INP/OBS CARE (HIGH) Secondary Visit Codes: [id number] CARE PLAN 30 MINUTES LOKI NAIDU May 25, 2024 00:10 SHONNA FLOOD MD May 25, 2024 20:09
[2024-05-25] MEDS: SODIUM CHLORIDE 0.9% 1,000 ML IV ONE (00:34)
[2024-05-25 06:56] LABS: INR 1.03 (0.9-1.15); Partial Thromboplastin Time 28.9 SEC (24.5-34.5); Prothrombin Time 10.9 sec (9.3-11.8)
[2024-05-25] MEDS: PANTOPRAZOLE 40 MG/10 ML VIAL INJ IV SCH (08:09)
[2024-05-25] MEDS: LOSARTAN POTASSIUM 25 MG TAB PO SCH (09:37)
[2024-05-25] MEDS ORDERED: FAMOTIDINE (10MG/ML) 2ML VL IV SCH (10:00)
--- NOTE | 2024-05-25 13:27 | DVHPN2 ---
Reviewed: Care Plan, H&P, Labs, Medications, Previous Orders, Radiology Changes from previous H/P or p: No Changes Objective Vitals Vital Signs Date Time Temp Pulse Resp B/P (MAP) Pulse Ox O2 Delivery O2 Flow Rate FiO2 05/25/24 11:19 70 16 99 Room Air* 0 21 05/25/24 11:12 98.3 142/64 (90) 98.3 Intake/Output Intake and Output 05/25/24 07:00 Intake Total 400 ml Balance 400 ml Intake IV Total 400 ml Medications Current Medications Medications Dose Ordered Sig/Corina Route Start Time Stop Time Status Last Admin Dose Admin Acetaminophen/ Hydrocodone Bitart 1 tab Q4HPRN PRN PO 05/24/24 21:45 Acetaminophen 650 mg Q4HP PRN PO 05/24/24 21:45 Ondansetron HCl 4 mg Q4HPRN PRN IV 05/24/24 21:45 Losartan Potassium 25 mg DAILY PO 05/25/24 10:00 Pantoprazole Sodium 40 mg DAILY IV 05/25/24 08:00 05/25/24 10:29 40 MG Laboratory Results Laboratory Tests 05/24/24 17:31 Chemistry Test 05/24/24 17:31 Albumin 4.4 g/dL (3.2-4.8) Calcium Level 9.6 mg/dL (8.7-10.4) Total Protein 7.0 g/dL (5.7-8.2) Coagulation Test 05/25/24 04:58 Prothrombin Time 10.9 sec (9.3-11.8) Prothrombin Time INR 1.03 (0.9-1.15) Activated Partial Thromboplast Time 28.9 SEC (24.5-34.5) LFT Test 05/24/24 17:31 Alanine Aminotransferase (ALT) 14 U/L (7-40) Alkaline Phosphatase 125 U/L (46-116) H Aspartate Amino Transferase (AST) 18 U/L (13-40) Total Bilirubin 0.3 mg/dL (0.2-1.0) Urinalysis Test 05/24/24 17:00 Urine Color Light-yellow (Yellow) Urine Clarity Clear (Clear) Urine pH 6.0 (5.0-9.0) Urine Specific [place] 1.022 (1.001-1.035) Urine Protein Negative (Negative) Urine Ketones Negative (Negative) Urine Blood Negative /uL (Negative) Urine Nitrite Negative (Negative) Urine Bilirubin Negative (Negative) Urine Urobilinogen 2 mg/dL (Negative) H Urine Leukocyte Esterase Negative /uL (Negative) Urine RBC 2 /hpf (0 - 4) Urine WBC 1 /hpf (0 - 5) Urine Squamous Epithelial Cells Few /hpf (<5) Urine Bacteria None seen /hpf (None Seen) Urine Glucose Normal mg/dL (Normal) Labs and/or images reviewed: Labs reviewed by me, Image(s) reviewed by me Assessment/Plan Assessment/Plan Right inguinal pain ?strangulation of the inguinal hernia: Surgical consult for Dr. Chan History of cholecystectomy Hypertension Hypercholesterolemia GERD Son Geardo [phone] at bedside Plan discussed with: Patient Date of Service: May 25, 2024 Billing Provider: SHOBHA AUGUSTE MD Common Visit Codes: [id number] INP/OBS CARE(HIGH) SHOBHA AUGUSTE MD May 25, 2024 13:27
--- NOTE | 2024-05-25 14:11 | DVHINCON2 ---
Date of service: May 25, 2024 History of Present Illness HPI: 78-year-old female complaining of three month history of right inguinal bulging that is painful. Patient denies any fevers, chills, nausea or vomiting. Past Medical History Hypertension. GERD. Hyperlipidemia. Past Surgical History Laparoscopic cholecystectomy. Hysterectomy. Family History: Cardiovascular disease G8 FATHER, Diabetes mellitus G8 MOTHER, Family History Noncontributory Social History No alcohol, tobacco, IV drug use Allergies: Coded Allergies: NO KNOWN ALLERGIES (Unverified , 03/24/24) Home Meds Active Scripts Ondansetron Odt 4MG Tab (ZOFRAN PO) 4 Mg Tb, 4 MG PO Q8HP PRN for 5 Days, #15 TAB ODT TAB-DISSOLVE IN MOUTH, THEN SWALLOW Prov:NIKOLAY MCCLELLAN RESIDENT 03/27/24 Reported Medications Omeprazole Magnesium (Omeprazole) 20 Mg Tab, 20 MG PO, TAB 03/25/24 Acetaminophen (Tylenol) 325 Mg Cap, 500 MG PO, CAP 03/25/24 Losartan Potassium (Losartan Potassium) 50 Mg Tab, 1 TAB PO DAILY, #30 TAB 5 Refills 03/25/24 Sulfamethoxazole W/Trimethopri (Bactrim Ds Tablet) 1 Tab Tb, 1 TAB PO BID, TAB 03/25/24 Lovastatin (Mevacor) 10 Mg Tab, 10 MG PO, TAB 03/25/24 Ondansetron Odt 4MG Tab (ZOFRAN PO) 4 Mg Tb, 4 MG PO, TAB ODT TAB-DISSOLVE IN MOUTH, THEN SWALLOW 03/25/24 Current Medications Current Medications Medications (Trade) Dose Ordered Sig/Corina Route PRN Reason Start Time Stop Time Status Last Admin Acetaminophen/ Hydrocodone Bitart ([place] 5/325MG Tab) 1 tab Q4HPRN PRN PO SEVERE PAIN (7-10 PAIN SCALE) 05/24/24 21:45 Acetaminophen (Tylenol Tablet) 650 mg Q4HP PRN PO PAIN SCALE 1-6 OR TEMP>100.4 05/24/24 21:45 Ondansetron HCl (Zofran) 4 mg Q4HPRN PRN IV NAUSEA / VOMITING 05/24/24 21:45 Famotidine (Pepcid Injection) 20 mg DAILY IV 05/25/24 10:00 05/25/24 02:16 DC Losartan Potassium (Cozaar Tablet) 25 mg DAILY PO 05/25/24 10:00 Pantoprazole Sodium (Protonix) 40 mg DAILY IV 05/25/24 08:00 05/25/24 10:29 Vital Signs Vital Signs Date Time Temp Pulse Resp B/P (MAP) Pulse Ox O2 Delivery O2 Flow Rate FiO2 05/25/24 13:00 98.1 67 15 131/62 (85) 100 98.1 05/25/24 11:19 Room Air* 0 21 Physical Exam GEN: Age-appropriate female in no acute distress. Alert. HEENT: Normocephalic. Atraumatic. Moist mucous membranes. Anicteric sclerae. CV: RRR Respiratory: CTAB ABD: Soft. Nontender nondistended. Right groin: Reducible right inguinal hernia proximally [address] of the abdomen and pelvis: Fat containing right inguinal hernia. Labs/Diagnostic Data Labs Test 05/25/24 04:58 05/24/24 22:21 05/24/24 17:31 05/24/24 17:00 Range/Units Prothrombin Time 10.9 9.3-11.8 sec Prothrombin Time INR 1.03 0.9-1.15 Activated Partial Thromboplast Time 28.9 24.5-34.5 SEC Influenza Type A Antigen Negative Negative Influenza Type B Antigen Negative Negative SARS-CoV-2 Antigen (Rapid) Negative NEGATIVE White Blood Count 6.5 4.4-10.8 10^3/uL Red Blood Count 3.94 L 4.0-5.20 10^6/uL Hemoglobin 11.8 L 12.2-16.2 g/dL Hematocrit 34.9 L 36.0-46.0 % Mean Corpuscular Volume 88.6 80.0-100.0 fL Mean Corpuscular Hemoglobin 30.0 28.0-32.0 pg Mean Corpuscular Hemoglobin Concent 33.9 32.0-36.0 g/dL Red Cell Distribution Width 17.0 H 11.8-14.3 % Platelet Count 256 140-450 10^3/uL Mean Platelet Volume 8.2 6.9-10.8 fL Neutrophils (%) (Auto) 55.2 37.0-80.0 % Lymphocytes (%) (Auto) 34.7 10.0-50.0 % Monocytes (%) (Auto) 8.5 0.0-12.0 % Eosinophils (%) (Auto) 1.2 0.0-7.0 % Basophils (%) (Auto) 0.4 0.0-2.0 % Neutrophils # (Auto) 3.6 1.6-8.6 10 ^3/uL Lymphocytes # (Auto) 2.2 0.4-5.4 10 ^3/uL Monocytes # (Auto) 0.5 0-1.3 10 ^3/uL Eosinophils # (Auto) 0.1 0-0.8 10 ^3/uL Basophils # (Auto) 0 0-0.2 10 ^3/uL Nucleated Red Blood Cells 0.2 % Sodium Level 139 136-145 mmol/L Potassium Level 4.6 3.5-5.1 mmol/L Chloride Level 106 98-107 mmol/L Carbon Dioxide Level 26 20-31 mmol/L Anion Gap 7 5-15 Blood Urea Nitrogen 22 9-23 mg/dL Creatinine 1.12 H 0.550-1.02 mg/dL Glomerular Filtration Rate Calc 50 >90 mL/min BUN/Creatinine Ratio 19.6 10.0-20.0 Serum Glucose 118 H 74-106 mg/dL Calcium Level 9.6 8.7-10.4 mg/dL Total Bilirubin 0.3 0.2-1.0 mg/dL Aspartate Amino Transferase (AST) 18 13-40 U/L Alanine Aminotransferase (ALT) 14 7-40 U/L Alkaline Phosphatase 125 H 46-116 U/L Total Protein 7.0 5.7-8.2 g/dL Albumin 4.4 3.2-4.8 g/dL Urine Color Light-yellow Yellow Urine Clarity Clear Clear Urine pH 6.0 5.0-9.0 Urine Specific [place] 1.022 1.001-1.035 Urine Protein Negative Negative Urine Ketones Negative Negative Urine Blood Negative Negative /uL Urine Nitrite Negative Negative Urine Bilirubin Negative Negative Urine Urobilinogen 2 H Negative mg/dL Urine Leukocyte Esterase Negative Negative /uL Urine RBC 2 0 - 4 /hpf Urine WBC 1 0 - 5 /hpf Urine Squamous Epithelial Cells Few <5 /hpf Urine Bacteria None seen None Seen /hpf Urine Glucose Normal Normal mg/dL Assessment 1. Right inguinal hernia Plan/Recommendation 1. Right inguinal hernia repair with mesh Informed consent: The surgery and its risks including but not limited to infection, bleeding requiring possible blood transfusion with the risk of hepatitis or HIV infection, possible hernia recurrence, possible perioperative [place] or stroke were explained to the patient and her son. All questions were answered to their satisfaction. She expressed verbal understanding and wished to proceed with the surgery. Plan discussed with: Patient, Son CASSI FELIZ MD May 25, 2024 14:11
[2024-05-25] MEDS: SODIUM CHLORIDE 0.9% 1,000 ML IV SCH (17:15)
[2024-05-26] VITALS (9 sets, daily range): BP systolic 119–135; BP diastolic 54–66; PULSE 69–115; RESP 13–19; TEMP 97.4–98.5; O2SAT 93–98
[2024-05-26 07:35] LABS: Basophils # (auto) 0 10 ^3/uL (0-0.2); Basophils % (auto) 0.3 % (0.0-2.0); Eosinophils # (auto) 0 10 ^3/uL (0-0.8); Eosinophils % (auto) 0.7 % (0.0-7.0); Hematocrit 35.1 % (36.0-46.0); Hemoglobin 11.8 g/dL (12.2-16.2); Lymphocytes # (auto) 1.5 10 ^3/uL (0.4-5.4); Lymphocytes % (auto) 24.3 % (10.0-50.0); Mean Corpuscular Hemoglobin 29.7 pg (28.0-32.0); Mean Corpuscular Hgb Conc. 33.7 g/dL (32.0-36.0); Mean Corpuscular Volume 88.1 fL (80.0-100.0); Monocytes # (auto) 0.6 10 ^3/uL (0-1.3); Monocytes % (auto) 8.9 % (0.0-12.0); Neutrophils # (auto) 4.2 10 ^3/uL (1.6-8.6); Neutrophils % (auto) 65.8 % (37.0-80.0); Nucleated Red Blood Cells % 0.2 %; Platelet Count (auto) 246 10^3/uL (140-450); Red Blood Cells 3.98 10^6/uL (4.0-5.20); Red Cell Distribution Width 16.9 % (11.8-14.3); White Blood Cell 6.3 10^3/uL (4.4-10.8)
[2024-05-26 08:08] LABS: Alanine Aminotransferase 11 U/L (7-40); Alkaline Phosphatase 103 U/L (46-116); Anion Gap 10 (5-15); Aspartate Aminotransferase 16 U/L (13-40); BUN/Creatinine Ratio 14.7 (10.0-20.0); Bilirubin, Total 0.8 mg/dL (0.2-1.0); Blood Urea Nitrogen 14 mg/dL (9-23); Calcium 9.6 mg/dL (8.7-10.4); Carbon Dioxide 23 mmol/L (20-31); Glucose 84 mg/dL (74-106); Potassium 3.7 mmol/L (3.5-5.1); Sodium 140 mmol/L (136-145); Total Protein 6.5 g/dL (5.7-8.2)
[2024-05-26 08:18] LABS: Chloride 107 mmol/L (98-107)
--- NOTE | 2024-05-26 08:22 | DVH ---
CHEST RADIOGRAPH Indication: Per protocol Technique: Single frontal view of the chest was obtained Comparison: XY CHEST XRAY 1 VIEW on DOS: 03/25/24 FINDINGS: Lines and Tubes: None Lungs: No focal consolidation. Pleura: No effusion. No pneumothorax. Cardiomediastinal contours: Unremarkable Bones: No acute osseous abnormality. IMPRESSION: No acute cardiopulmonary disease.
--- NOTE | 2024-05-26 09:45 | DVHPN2 ---
Reviewed: Care Plan, H&P, Labs, Medications, Previous Orders, Radiology Changes from previous H/P or p: No Changes Objective Vitals Vital Signs Date Time Temp Pulse Resp B/P (MAP) Pulse Ox O2 Delivery O2 Flow Rate FiO2 05/26/24 09:35 121/66 05/26/24 09:00 98.3 69 15 96 98.3 05/25/24 20:00 Room Air* 0 21 Intake/Output Intake and Output 05/26/24 07:00 Intake Total 250 ml Balance 250 ml Intake Oral 250 ml # Voids 4 Medications Current Medications Medications Dose Ordered Sig/Corina Route Start Time Stop Time Status Last Admin Dose Admin Acetaminophen/ Hydrocodone Bitart 1 tab Q4HPRN PRN PO 05/24/24 21:45 Acetaminophen 650 mg Q4HP PRN PO 05/24/24 21:45 Ondansetron HCl 4 mg Q4HPRN PRN IV 05/24/24 21:45 Losartan Potassium 25 mg DAILY PO 05/25/24 10:00 Pantoprazole Sodium 40 mg DAILY IV 05/25/24 08:00 05/25/24 10:29 40 MG Sodium Chloride 1,000 ml @ 75 mls/hr [id number] IV 05/25/24 17:15 05/26/24 05:50 75 MLS/HR Laboratory Results Laboratory Tests 05/26/24 06:05 Chemistry Test 05/26/24 06:05 Albumin 4.0 g/dL (3.2-4.8) Calcium Level 9.6 mg/dL (8.7-10.4) Total Protein 6.5 g/dL (5.7-8.2) LFT Test 05/26/24 06:05 Alanine Aminotransferase (ALT) 11 U/L (7-40) Alkaline Phosphatase 103 U/L (46-116) Aspartate Amino Transferase (AST) 16 U/L (13-40) Total Bilirubin 0.8 mg/dL (0.2-1.0) Urinalysis Test 05/24/24 17:00 Urine Color Light-yellow (Yellow) Urine Clarity Clear (Clear) Urine pH 6.0 (5.0-9.0) Urine Specific [place] 1.022 (1.001-1.035) Urine Protein Negative (Negative) Urine Ketones Negative (Negative) Urine Blood Negative /uL (Negative) Urine Nitrite Negative (Negative) Urine Bilirubin Negative (Negative) Urine Urobilinogen 2 mg/dL (Negative) H Urine Leukocyte Esterase Negative /uL (Negative) Urine RBC 2 /hpf (0 - 4) Urine WBC 1 /hpf (0 - 5) Urine Squamous Epithelial Cells Few /hpf (<5) Urine Bacteria None seen /hpf (None Seen) Urine Glucose Normal mg/dL (Normal) Labs and/or images reviewed: Labs reviewed by me, Image(s) reviewed by me Assessment/Plan Assessment/Plan Acute right inguinal pain secondary to possible strangulated inguinal hernia, Dr. FELIZ planning for herniorrhaphy with mesh today History of cholecystectomy Hypertension Hypercholesterolemia GERD Son Geardo [phone] at bedside Plan discussed with: Patient My Orders Orders - SHOBHA AUGUSTE MD Procedure Category Date Status Time * Surgical Consult CONS 05/25/24 Transmitted 13:20 Type And Screen BBK 05/26/24 In Process 03:21 Chest Portable XY 05/26/24 Resulted 03:25 Date of Service: May 26, 2024 Billing Provider: SHOBHA AUGUSTE MD Common Visit Codes: [id number] INP/OBS CARE(HIGH) SHOBHA AUGUSTE MD May 26, 2024 09:45
[2024-05-26] MEDS: ceFAZolin 2 GM/D5W100ml 100 ML IV ONE (14:20)
[2024-05-26] MEDS ORDERED: PHENYLEPHRINE HCL 10 MG/ML VL IV ONE (14:23)
[2024-05-26] MEDS ORDERED: fentaNYL CITRATE 100 MCG/2 ML VL ONE (14:24)
[2024-05-26] MEDS ORDERED: MIDAZOLAM HCL 2MG/2ML 2ml VIAL (1mg/ml) ONE (14:24)
[2024-05-26] MEDS ORDERED: MEPERIDINE HCL (25 MG/ML) 1ML VIAL ONE (14:25)
[2024-05-26] MEDS ORDERED: ETOMIDATE (2MG/ML) 20ML VIAL IV ONE (14:31)
[2024-05-26] MEDS ORDERED: DexAMETHasone SOD PHOS 10MG/1ML VIAL INJ ONE (14:31)
[2024-05-26] MEDS ORDERED: ePHEDrine SULFATE 50 MG/ML AMP IV PRN (14:45)
[2024-05-26] MEDS: LIDOCAINE W/ EPINEPHRINE 1% 20ML VIAL ONE (14:45)
[2024-05-26] MEDS ORDERED: MORPHINE SULFATE 4 MG/ML SYR/VIAL IV PRN (14:45)
[2024-05-26] MEDS ORDERED: hydrALAZINE HCL 20 MG/ML VL IV PRN (14:45)
[2024-05-26] MEDS: ceFAZolin 1GM VL ONE (14:45)
[2024-05-26] MEDS ORDERED: MIDAZOLAM HCL 2MG/2ML 2ml VIAL (1mg/ml) IV PRN (14:45)
--- NOTE | 2024-05-26 14:59 | ECG ---
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
--- NOTE | 2024-05-26 15:24 | DVHOP2 ---
Operative Report - 2 Report Details Date: 05/26/24 Preop Diagnosis: Right inguinal hernia Postop Diagnosis: Same Surgeon: Gerry Chan MD Music Researcher: None Anesthesiologist: Dr. Holliday Anesthesia: General, Local Consent: The surgery and its risks including but not limited to infection, bleeding requiring possible blood transfusion with the risk of hepatitis or HIV infection, possible hernia recurrence, possible perioperative [place] or stroke were explained to the patient and her family. All questions were answered their satisfaction. The patient expressed verbal understanding wished to proceed with the surgery. Complications: None Estimated Blood Loss: 5 mL Fluids: 600 mL Name of Procedure Performed Right inguinal hernia repair with mesh Procedure Details Procedure Details: After induction of general anesthesia, patient's right inguinal region was prepped and draped in standard surgical fashion. Approximately 20 mL of 1% lidocaine with epinephrine was used as local anesthesia. An oblique incision was made in the right inguinal region and this incision was taken through the soft tissue through the Denis's fascia down to the external oblique fascia. There was already a bulge consistent with a hernia noted in this area. Once the external oblique fascia was opened Kim there was a direct component noted. The hernia sac was from the surrounding structures and opened. There was no incarcerated omentum or small intestine within the sac. High ligation was performed at the base of the a sac using 2-0 Vicryl sutures and the excess hernia sac was excised and sent off to pathology. A ProGrip mesh cut to appropriate size was used for the repair. This was laid onto the inguinal floor with stuck to the tissue. The area was well irrigated with Ancef irrigation. The external oblique fascia was then closed over the repair using running 2-0 Vicryl sutures. Denis's fascia was reapproximated using interrupted 2-0 Vicryl sutures. Skin incision was then closed using deepthi. Surgical site was cleaned and dried and dressings were applied. Sponge, needle, instrument count at the end of the case were reported to be correct the nursing staff. The patient tolerated procedure well and at the time of dictation, she is being awakened from general anesthesia. Specimen: Hernia sac Condition Stable Disposition Still a Patient GERRY CHAN MD May 26, 2024 15:24
[2024-05-26] MEDS: HYDROmorphone HCL 2 MG/ML VL/or syr IV PRN (16:10)
[2024-05-27 01:00] VITALS: BP 113/49; PULSE 88; RESP 18; TEMP 97.5; O2SAT 97
[2024-05-27 05:00] VITALS: BP 111/97; PULSE 64; RESP 20; TEMP 98.1; O2SAT 98
[2024-05-27 09:00] VITALS: BP 112/59; PULSE 78; RESP 16; TEMP 98; O2SAT 95
--- NOTE | 2024-05-27 09:39 | DVHPN2 ---
Reviewed: Care Plan, H&P, Labs, Medications, Previous Orders, Radiology Changes from previous H/P or p: No Changes Objective Vitals Vital Signs Date Time Temp Pulse Resp B/P (MAP) Pulse Ox O2 Delivery O2 Flow Rate FiO2 05/27/24 05:00 98.1 64 20 111/97 (102) 98 98.1 05/26/24 20:00 Room Air* 0 21 Intake/Output Intake and Output 05/27/24 07:00 Intake Total 250 ml Balance 250 ml Intake Oral 50 ml IV Total 200 ml # Voids 4 Medications Current Medications Medications Dose Ordered Sig/Corina Route Start Time Stop Time Status Last Admin Dose Admin Acetaminophen/ Hydrocodone Bitart 1 tab Q4HPRN PRN PO 05/24/24 21:45 Acetaminophen 650 mg Q4HP PRN PO 05/24/24 21:45 Ondansetron HCl 4 mg Q4HPRN PRN IV 05/24/24 21:45 Losartan Potassium 25 mg DAILY PO 05/25/24 10:00 Pantoprazole Sodium 40 mg DAILY IV 05/25/24 08:00 05/26/24 09:50 40 MG Sodium Chloride 1,000 ml @ 75 mls/hr [id number] IV 05/25/24 17:15 05/26/24 21:29 75 MLS/HR Laboratory Results Laboratory Tests 05/26/24 06:05 Urinalysis Test 05/24/24 17:00 Urine Color Light-yellow (Yellow) Urine Clarity Clear (Clear) Urine pH 6.0 (5.0-9.0) Urine Specific [place] 1.022 (1.001-1.035) Urine Protein Negative (Negative) Urine Ketones Negative (Negative) Urine Blood Negative /uL (Negative) Urine Nitrite Negative (Negative) Urine Bilirubin Negative (Negative) Urine Urobilinogen 2 mg/dL (Negative) H Urine Leukocyte Esterase Negative /uL (Negative) Urine RBC 2 /hpf (0 - 4) Urine WBC 1 /hpf (0 - 5) Urine Squamous Epithelial Cells Few /hpf (<5) Urine Bacteria None seen /hpf (None Seen) Urine Glucose Normal mg/dL (Normal) Labs and/or images reviewed: Labs reviewed by me, Image(s) reviewed by me Assessment/Plan Assessment/Plan Acute right inguinal pain secondary to right inguinal hernia Right inguinal hernia repair with mesh by Dr Chan on 05-26-24, Ancef one dose given, started on Levaquin 500 mg IV daily for two weeks, Flagyl 500 mg PO TID for one week History of cholecystectomy Hypertension Hypercholesterolemia GERD Physical therapy ordered Son Tereza [phone] daughter Babs at bedside Family requesting alf facility placement for rehab and IV antibiotics Plan discussed with: Patient Date of Service: May 27, 2024 Billing Provider: SHOBHA AUGUSTE MD Common Visit Codes: [id number] INP/OBS CARE(HIGH) SHOBHA AUGUSTE MD May 27, 2024 09:39
[2024-05-27] MEDS ORDERED: levoFLOXacin 500MG 100 ML IV SCH (10:00)
[2024-05-27 13:00] VITALS: BP 116/59; PULSE 61; RESP 17; TEMP 98.6; O2SAT 95
[2024-05-27] MEDS: metroNIDAZOLE 500 MG TAB PO SCH (14:39)
[2024-05-27] MEDS: levoFLOXacin 500 MG TAB PO ONE (14:40)
[2024-05-27 17:00] VITALS: BP 120/59; PULSE 67; RESP 18; TEMP 98.4; O2SAT 98
[2024-05-27 21:00] VITALS: BP 108/66; PULSE 87; RESP 17; TEMP 98.6; O2SAT 97
[2024-05-27] MEDS ORDERED: levoFLOXacin 500 MG TAB PO SCH (22:00)
[2024-05-28] VITALS (8 sets, daily range): BP systolic 105–128; BP diastolic 47–77; PULSE 68–74; RESP 16–21; TEMP 98–98.6; O2SAT 95–98
[2024-05-28] MEDS: ONDANSETRON HCL 4 MG/2 ML VIAL IV ONE (08:00)
[2024-05-28] MEDS: SUCCINYLCHOLINE CHLORIDE 20 MG/ML 10ML VIAL IV ONE (08:00)
--- NOTE | 2024-05-28 08:30 | DVHPN2 ---
Reviewed: Care Plan, H&P, Labs, Medications, Previous Orders, Radiology Changes from previous H/P or p: No Changes Objective Vitals Vital Signs Date Time Temp Pulse Resp B/P (MAP) Pulse Ox O2 Delivery O2 Flow Rate FiO2 05/28/24 05:00 98.5 68 16 122/56 (78) 96 98.5 05/27/24 20:00 Room Air* 0 21 Intake/Output Intake and Output 05/28/24 07:00 Intake Total 530 ml Balance 530 ml Intake Oral 530 ml # Voids 12 # Bowel Movements 1 Medications Current Medications Medications Dose Ordered Sig/Corina Route Start Time Stop Time Status Last Admin Dose Admin Acetaminophen/ Hydrocodone Bitart 1 tab Q4HPRN PRN PO 05/24/24 21:45 Acetaminophen 650 mg Q4HP PRN PO 05/24/24 21:45 Ondansetron HCl 4 mg Q4HPRN PRN IV 05/24/24 21:45 Losartan Potassium 25 mg DAILY PO 05/25/24 10:00 05/27/24 10:21 25 MG Pantoprazole Sodium 40 mg DAILY IV 05/25/24 08:00 05/27/24 10:20 40 MG Sodium Chloride 1,000 ml @ 75 mls/hr [id number] IV 05/25/24 17:15 05/27/24 22:35 75 MLS/HR Metronidazole 500 mg Q8HR PO 05/27/24 14:00 05/28/24 05:16 500 MG Cefazolin Sodium 50 ml @ 100 mls/hr Q12HR IV 05/28/24 10:00 UNV Laboratory Results Laboratory Tests 05/26/24 06:05 Urinalysis Test 05/24/24 17:00 Urine Color Light-yellow (Yellow) Urine Clarity Clear (Clear) Urine pH 6.0 (5.0-9.0) Urine Specific [place] 1.022 (1.001-1.035) Urine Protein Negative (Negative) Urine Ketones Negative (Negative) Urine Blood Negative /uL (Negative) Urine Nitrite Negative (Negative) Urine Bilirubin Negative (Negative) Urine Urobilinogen 2 mg/dL (Negative) H Urine Leukocyte Esterase Negative /uL (Negative) Urine RBC 2 /hpf (0 - 4) Urine WBC 1 /hpf (0 - 5) Urine Squamous Epithelial Cells Few /hpf (<5) Urine Bacteria None seen /hpf (None Seen) Urine Glucose Normal mg/dL (Normal) Labs and/or images reviewed: Labs reviewed by me, Image(s) reviewed by me Assessment/Plan Assessment/Plan Acute right inguinal pain secondary to right inguinal hernia Right inguinal hernia repair with mesh by Dr Chan on 05-26-24, Ancef one dose given, started on Levaquin 500 mg IV daily for two weeks, Flagyl 500 mg PO TID for one week History of cholecystectomy Hypertension Hypercholesterolemia GERD Physical therapy ordered Son Tereza [phone] daughter Babs at bedside Family requesting senior care facility placement for rehab and IV antibiotics Ancef 1 g IV q.12h for 10 days Plan discussed with: Patient My Orders Orders - SHOBHA AUGUSTE MD Procedure Category Date Status Time Insert Midline ORDERS 05/27/24 Transmitted 09:34 Metronidazole Tablet PHA 05/27/24 In Process (Flagyl Tablet) 14:00 Pt Request For Service PT 05/27/24 Logged 09:34 Cefazolin 1gm/50ml PHA 05/28/24 Logged (Ancef) 10:00 * Supervisor Powdered Sugar CONS 05/28/24 Transmitted Consult Date of Service: May 28, 2024 Billing Provider: SHOBHA AUGUSTE MD Common Visit Codes: [id number] INP/OBS CARE(HIGH) SHOBHA AUGUSTE MD May 28, 2024 08:30
--- NOTE | 2024-05-28 09:39 | DVHDS2 ---
Discharge Summary Date of Admission May 24, 2024 at 21:39 Date of Discharge: May 28, 2024 Admitting Diagnosis Right inguinal pain Wounds: Right inguinal hernia repair with mesh Labs/Diagnostic Data: Laboratory Results Test 05/26/24 06:05 05/25/24 04:58 05/24/24 22:21 05/24/24 17:00 White Blood Count 6.3 10^3/uL (4.4-10.8) Red Blood Count 3.98 10^6/uL (4.0-5.20) Hemoglobin 11.8 g/dL (12.2-16.2) Hematocrit 35.1 % (36.0-46.0) Mean Corpuscular Volume 88.1 fL (80.0-100.0) Mean Corpuscular Hemoglobin 29.7 pg (28.0-32.0) Mean Corpuscular Hemoglobin Concent 33.7 g/dL (32.0-36.0) Red Cell Distribution Width 16.9 % (11.8-14.3) Platelet Count 246 10^3/uL (140-450) Mean Platelet Volume 8.5 fL (6.9-10.8) Neutrophils (%) (Auto) 65.8 % (37.0-80.0) Lymphocytes (%) (Auto) 24.3 % (10.0-50.0) Monocytes (%) (Auto) 8.9 % (0.0-12.0) Eosinophils (%) (Auto) 0.7 % (0.0-7.0) Basophils (%) (Auto) 0.3 % (0.0-2.0) Neutrophils # (Auto) 4.2 10 ^3/uL (1.6-8.6) Lymphocytes # (Auto) 1.5 10 ^3/uL (0.4-5.4) Monocytes # (Auto) 0.6 10 ^3/uL (0-1.3) Eosinophils # (Auto) 0 10 ^3/uL (0-0.8) Basophils # (Auto) 0 10 ^3/uL (0-0.2) Nucleated Red Blood Cells 0.2 % Sodium Level 140 mmol/L (136-145) Potassium Level 3.7 mmol/L (3.5-5.1) Chloride Level 107 mmol/L (98-107) Carbon Dioxide Level 23 mmol/L (20-31) Anion Gap 10 (5-15) Blood Urea Nitrogen 14 mg/dL (9-23) Creatinine 0.95 mg/dL (0.550-1.02) Glomerular Filtration Rate Calc 61 mL/min (>90) BUN/Creatinine Ratio 14.7 (10.0-20.0) Serum Glucose 84 mg/dL (74-106) Calcium Level 9.6 mg/dL (8.7-10.4) Total Bilirubin 0.8 mg/dL (0.2-1.0) Aspartate Amino Transferase (AST) 16 U/L (13-40) Alanine Aminotransferase (ALT) 11 U/L (7-40) Alkaline Phosphatase 103 U/L (46-116) Total Protein 6.5 g/dL (5.7-8.2) Albumin 4.0 g/dL (3.2-4.8) Prothrombin Time 10.9 sec (9.3-11.8) Prothrombin Time INR 1.03 (0.9-1.15) Activated Partial Thromboplast Time 28.9 SEC (24.5-34.5) Influenza Type A Antigen Negative (Negative) Influenza Type B Antigen Negative (Negative) SARS-CoV-2 Antigen (Rapid) Negative (NEGATIVE) Urine Color Light-yellow (Yellow) Urine Clarity Clear (Clear) Urine pH 6.0 (5.0-9.0) Urine Specific [place] 1.022 (1.001-1.035) Urine Protein Negative (Negative) Urine Ketones Negative (Negative) Urine Blood Negative /uL (Negative) Urine Nitrite Negative (Negative) Urine Bilirubin Negative (Negative) Urine Urobilinogen 2 mg/dL (Negative) Urine Leukocyte Esterase Negative /uL (Negative) Urine RBC 2 /hpf (0 - 4) Urine WBC 1 /hpf (0 - 5) Urine Squamous Epithelial Cells Few /hpf (<5) Urine Bacteria None seen /hpf (None Seen) Urine Glucose Normal mg/dL (Normal) Other Laboratory Tests 05/26/24 06:05 Brief Hx & Hospital Course: 78-year-old female with a history of hypertension hypercholesterolemia history of cholecystectomy came in for right inguinal pain found to have right inguinal hernia and underwent repair with mesh by Dr. Chan on 05/26/2024. Treated with the Ancef which will be continued for 10 more days in the care home. Physical therapy recommended [facility] for rehab for with the family agreed and patient is being discharged to SNF today Consults/Reason for consult Surgeon Dr. Chan Operations or Procedures Right inguinal hernia repair with mesh Condition at Discharge: Fair Final Diagnosis/Problems List Acute right inguinal pain secondary to right inguinal hernia Right inguinal hernia repair with mesh by Dr Chan on 05-26-24, will continue Ancef 1 g IV q.12h for 10 days History of cholecystectomy Hypertension Hypercholesterolemia GERD Physical therapy ordered Discharge Disposition: Custodial Facility Discharge Instruct/Medications Diet: Cardiac 2g Na,low cholest Activity: Light activity Follow Up/Referral: Follow up with the care home Medications: Ancef 1 g IV q.12h for 10 days see list for other meds 35 (Time taken for discharge summary 35 minutes) Discharge Statement: "Patient was advised to return to the ER or call 911 if any headaches, dizziness, shortness of breath, chest pain, abdominal pain, bleeding, fevers, or worsening of medical condition. Patient was counseled about treatment plan, medications, possible side effects, patientverbalized understanding. All questions were answered to the best of my ability. This discharge took greater then 30 minutes in planning, reviewing documentation, counseling the patient, and discussing with other team members." ASSESSMENT ASSESSMENT Hospital Course Uneventful Assessment Acute right inguinal pain secondary to right inguinal hernia Right inguinal hernia repair with mesh by Dr Chan on 05-26-24, will continue Ancef 1 g IV q.12h for 10 days History of cholecystectomy Hypertension Hypercholesterolemia GERD Physical therapy ordered Date of Service: May 28, 2024 Billing Provider: SHOBHA AUGUSTE MD Common Visit Codes: [id number] DISCH DAY >30min SHOBHA AUGUSTE MD May 28, 2024 09:39
[2024-05-28] MEDS ORDERED: levoFLOXacin 250 MG TAB PO SCH (10:00)
[2024-05-28] MEDS: ceFAZolin 1GM/50ML 50 ML IV SCH (10:04)
[2024-05-29 05:00] VITALS: BP 127/58; PULSE 65; RESP 18; TEMP 98.6; O2SAT 98
[2024-05-29 07:45] VITALS: PULSE 72; RESP 17; O2SAT 97
--- NOTE | 2024-05-29 08:08 | DVHPN2 ---
Reviewed: Care Plan, H&P, Labs, Medications, Previous Orders, Radiology Changes from previous H/P or p: No Changes Objective Vitals Vital Signs Date Time Temp Pulse Resp B/P (MAP) Pulse Ox O2 Delivery O2 Flow Rate FiO2 05/29/24 05:00 98.6 65 18 127/58 (81) 98 98.6 05/28/24 20:00 Room Air* 0 21 Intake/Output Intake and Output 05/29/24 07:00 Intake Total 3090 ml Balance 3090 ml Intake Oral 2040 ml IV Total 1050 ml # Voids 12 # Bowel Movements 1 Medications Current Medications Medications Dose Ordered Sig/Corina Route Start Time Stop Time Status Last Admin Dose Admin Acetaminophen/ Hydrocodone Bitart 1 tab Q4HPRN PRN PO 05/24/24 21:45 Acetaminophen 650 mg Q4HP PRN PO 05/24/24 21:45 Ondansetron HCl 4 mg Q4HPRN PRN IV 05/24/24 21:45 Losartan Potassium 25 mg DAILY PO 05/25/24 10:00 05/28/24 10:05 25 MG Pantoprazole Sodium 40 mg DAILY IV 05/25/24 08:00 05/28/24 10:05 40 MG Sodium Chloride 1,000 ml @ 75 mls/hr [id number] IV 05/25/24 17:15 05/28/24 19:01 75 MLS/HR Metronidazole 500 mg Q8HR PO 05/27/24 14:00 05/28/24 21:39 500 MG Cefazolin Sodium 50 ml @ 100 mls/hr Q12HR IV 05/28/24 10:00 05/28/24 21:39 100 MLS/HR Laboratory Results Laboratory Tests 05/26/24 06:05 Urinalysis Test 05/24/24 17:00 Urine Color Light-yellow (Yellow) Urine Clarity Clear (Clear) Urine pH 6.0 (5.0-9.0) Urine Specific [place] 1.022 (1.001-1.035) Urine Protein Negative (Negative) Urine Ketones Negative (Negative) Urine Blood Negative /uL (Negative) Urine Nitrite Negative (Negative) Urine Bilirubin Negative (Negative) Urine Urobilinogen 2 mg/dL (Negative) H Urine Leukocyte Esterase Negative /uL (Negative) Urine RBC 2 /hpf (0 - 4) Urine WBC 1 /hpf (0 - 5) Urine Squamous Epithelial Cells Few /hpf (<5) Urine Bacteria None seen /hpf (None Seen) Urine Glucose Normal mg/dL (Normal) Labs and/or images reviewed: Labs reviewed by me, Image(s) reviewed by me Assessment/Plan Assessment/Plan Acute right inguinal pain secondary to right inguinal hernia Right inguinal hernia repair with mesh by Dr Chan on 05-26-24, Ancef one dose given, started on Levaquin 500 mg IV daily for two weeks, Flagyl 500 mg PO TID for one week History of cholecystectomy Hypertension Hypercholesterolemia GERD Physical therapy ordered Son Tereza [phone] daughter Babs at bedside Discharged to longterm facility for rehab and for IV antibiotics Awaiting authorization from insurance Plan discussed with: Patient My Orders Orders - SHOBHA AUGUSTE MD Procedure Category Date Status Time Cefazolin 1gm/50ml PHA 05/28/24 In Process (Ancef) 10:00 * Desk Reporter CONS 05/28/24 Transmitted Consult 08:31 Discharge DISCHARGE 05/28/24 Transmitted 08:31 Date of Service: May 29, 2024 Billing Provider: SHOBHA AUGUSTE MD Common Visit Codes: [id number] INP/OBS CARE(HIGH) SHOBHA AUGUSTE MD May 29, 2024 08:08
[2024-05-29 08:48] VITALS: BP 116/60; PULSE 57; RESP 18; TEMP 98; O2SAT 97
[2024-05-29 10:11] VITALS: BP 125/73; PULSE 74; RESP 18; TEMP 98.2; O2SAT 97
[2024-05-29 12:18] VITALS: BP 120/57; PULSE 77; RESP 17; TEMP 97.5; O2SAT 95
== END 2024-05-29 11:47 | DRG 352 ==
LOC: ER 16:38 → OVERFLOW 21:39 → CENTRAL 05-25 11:22
PROVIDERS: ADMIT Family Medicine; ATTEND Family Medicine
PROC: 0YU50JZ Supplement Right Inguinal Region with Synthetic Substitute, Open Approach (ICD-10-PCS; principal; 2024-05-26 14:20)
PROC: 05HC33Z Insertion of Infusion Device into Left Basilic Vein, Percutaneous Approach (ICD-10-PCS; 2024-05-27)
PROC: B54NZZA Ultrasonography of Left Upper Extremity Veins, Guidance (ICD-10-PCS; 2024-05-27)
DX: K40.90 Unilateral inguinal hernia, without obstruction or gangrene, not specified as recurrent (principal); K21.9 Gastro-esophageal reflux disease without esophagitis; I10 Essential (primary) hypertension; E78.00 Pure hypercholesterolemia, unspecified; Z20.822 Contact with and (suspected) exposure to COVID-19; Z90.49 Acquired absence of other specified parts of digestive tract; Z90.710 Acquired absence of both cervix and uterus; Z82.49 Family history of ischemic heart disease and other diseases of the circulatory system; Z83.3 Family history of diabetes mellitus
CPT/HCPCS: 36415; 71045; 74176; 80053; 81001; 85025; 85610; 85730; 86850; 86900; 86901; 87426; 87804; 88302; 93005; 97116; 97163; 97530; C1781; G0378; J0330; J0690; J1100; J2250; J2470